=== PATIENT | female | born 1925 | race Caucasian/White ===

== ENCOUNTER 2016-09-17 09:27 | Emergency (ER) | payer MEDICARE, OTHER ==
[2016-09-17 09:43] VITALS: BP 156/79
--- NOTE | 2016-09-17 10:52 | EDM.PDOC ---
ED HPI GENERAL MEDICAL PROBLEM - General Chief Complaint: General Stated Complaint: RASH/OINTMENT MAKING PT SICK Time Seen by Provider: 09/17/16 09:45 Source of Information: Reports: Patient, Family History Limitations: Reports: No limitations - History of Present Illness INITIAL COMMENTS - FREE TEXT/NARRATIVE: 89-year-old female who was started on a topical triamcinolone for a rash on her hands is brought in today by her son because she just feels so weak. It's been progressively worse over the past several weeks. No dark stools, fevers, pain, shortness of breath or headache. She did not mention her weakness to her primary doctor 2 days ago when she complained of the rash. Onset: unknown/unsure Severity: mild Worsens with: Reports: Other (She is concerned that the triamcinolone is causing her symptoms) Associated Symptoms: Reports: malaise, weakness. 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 Endocrine/Metabolic History: Reports: Diabetes, type II - Past Surgical History GI Surgical History: Reports: Cholecystectomy Female Surgical History: Reports: Hysterectomy Musculoskeletal Surgical History: Reports: Knee replacement, Shoulder surgery Other Oncologic Surgeries/Procedures: L side Social & Family History - Tobacco Use Smoking Status *Q: Never Smoker Years of Tobacco use: 0 Second Hand Smoke Exposure: No - Alcohol Use Days Per Week of Alcohol Use: 0 - Recreational Drug Use Recreational Drug Use: No ED ROS GENERAL - Review of Systems Review Of Systems: See Below Constitutional: Reports: malaise, weakness. Denies: fever, chills HEENT: Reports: No symptoms Respiratory: Denies: Shortness of Breath, Cough Cardiovascular: Denies: Chest pain GI/Abdominal: Denies: Abdominal pain, Nausea, Vomiting : Reports: no symptoms Musculoskeletal: Reports: no symptoms Skin: Reports: rash (On hands and forearms) Neurological: Reports: Weakness. Denies: Confusion, Dizziness, Headache Psychiatric: Reports: No symptoms ED EXAM, GENERAL - Physical Exam Exam: See Below Exam Limited By: No limitations General Appearance: alert, no apparent distress Eye Exam: bilateral eye: EOMI Respiratory/Chest: no respiratory distress, lungs clear Cardiovascular: regular rate, rhythm GI/Abdominal: non tender Neurological: alert, oriented Psychiatric: normal affect, normal mood Skin Exam: Warm, Dry, Other (She has erythematous plaques on the dorsal aspects of both hands and extensor surfaces of the forearms) Course - Vital Signs Last Recorded V/S: Last Vital Signs Temp 96.5 F 09/17/16 09:51 Pulse 82 09/17/16 09:51 Resp 16 09/17/16 09:51 BP 156/79 H 09/17/16 09:51 Pulse Ox 93 L 09/17/16 09:51 - Orders/Labs/Meds Labs: Laboratory Tests 09/17/16 09/17/16 09/17/16 Range/Units 10:31 10:31 10:48 WBC 5.7 (4.5-11.0) K/uL RBC 4.67 (3.30-5.50) M/uL Hgb 15.2 H (12.0-15.0) g/dL Hct 44.1 (36.0-48.0) % MCV 94 (80-98) fL MCH 33 H (27-31) pg MCHC 35 (32-36) % Plt Count 210 (150-400) K/uL Neut % (Auto) 70 H (36-66) % Lymph % (Auto) 19 L (24-44) % [place] % (Auto) 10 H (2-6) % Eos % (Auto) 1 L (2-4) % Baso % (Auto) 1 (0-1) % Sodium 135 L (140-148) mmol/L Potassium 4.0 (3.6-5.2) mmol/L Chloride 98 L (100-108) mmol/L Carbon Dioxide 24 (21-32) mmol/L Anion Gap 17.0 H (5.0-14.0) mmol/L BUN 18 (7-18) mg/dL Creatinine 1.1 H (0.6-1.0) mg/dL Est Cr Clr Drug Dosing 26.16 mL/min Estimated GFR (MDRD) 47 L (>60) Glucose 260 H (74-106) mg/dL Calcium 8.5 (8.5-10.1) mg/dL Urine Color Yellow Urine Appearance Slightly cloudy Urine pH 5.0 (4.5-8.0) Ur Specific [place] 1.030 (1.008-1.030) Urine Protein Trace (NEGATIVE) mg/dL Urine Glucose (UA) 1000 H (NEGATIVE) mg/dL Urine Ketones 50 H (NEGATIVE) mg/dL Urine Occult Blood Negative (NEGATIVE) Urine Nitrite Negative (NEGATIVE) Urine Bilirubin Negative (NEGATIVE) Urine Urobilinogen Normal (NORMAL) mg/dL Ur Leukocyte Esterase Negative (NEGATIVE) Urine RBC 0-5 (0-5) Urine WBC 0-5 (0-5) Ur Epithelial Cells Many Amorphous Sediment Few Urine Bacteria Not seen Urine Mucus Few - Re-Assessments/Exams Free Text/Narrative Re-Assessment/Exam: 09/17/16 10:52 CBC BMP UA were obtained. 09/17/16 11:17 UA was negative other than glucose present. Serum glucose was 260, she had some mild renal insufficiency but otherwise labs were reassuring. I discussed with her her primary doctor has ever talk to her about her glucose levels , I reviewed her levels here in the emergency room over the past year they have always been around 200. She is not sure. I asked her to continue with the topical triamcinolone and recheck with Dr. Luna next week. Departure - Departure Time of Disposition: 12:10 Disposition: Home, Self-Care 01 Condition: good Clinical Impression: Chronic hyperglycemia, Weakness, Rash of hands Instructions: Hyperglycemia, [id number], Rash, [id number] Referrals: Rd Luna MD [Primary Care Provider] - Forms: ED Department Discharge Care Plan Goals: Continue with topical cream as directed to the weekend and consider rechecking with Dr. Luna next week to discuss your glucose levels and weakness as well as rechecking your hands. You can return anytime if worsening such as fever or shortness of breath.
== END 2016-09-17 12:09 | disposition home or self-care (01) ==
LOC: JP.ED 09:27
DX: R73.9 Hyperglycemia, unspecified (principal); R53.1 Weakness; R21 Rash and other nonspecific skin eruption; E11.9 Type 2 diabetes mellitus without complications; Z90.49 Acquired absence of other specified parts of digestive tract; Z90.710 Acquired absence of both cervix and uterus; Z96.659 Presence of unspecified artificial knee joint; Z98.890 Other specified postprocedural states
CPT/HCPCS: 36415; 80048; 81001; 85025; 99283; 99284

== ENCOUNTER 2016-09-20 14:56 | Inpatient (IN) | payer MEDICARE, OTHER ==
[2016-09-20] MEDS ORDERED: Sodium Chloride 0.9% 10 ML Syringe FLUSH PRN (15:33)
[2016-09-20] MEDS ORDERED: Nitroglycerin 0.4 MG Tab.SL SL PRN (15:33)
--- NOTE | 2016-09-20 15:38 | EDM.PDOC ---
ED HISTORY OF PRESENT ILLNESS - General Chief Complaint: Cardiovascular Problem Stated Complaint: CAME FROM CLINIC Time Seen by Provider: 09/20/16 15:27 Source: Reports: Patient, Family, RN notes reviewed History Limitations: Reports: No limitations - History of Present Illness INITIAL COMMENTS - FREE TEXT/NARRATIVE: 89-year-old female presents to the emergency department he complained of shortness of breath she was initially evaluated by her primary care provider and sent over from the clinic. She states she's been feeling poorly for the last 3 or 4 days she has had a 6 pound weight gain and increasingly short of breath she's had to sleep in a chair because she cannot lay flat she has a sensation in her chest of cannot breathe and pressure did have a bout of nausea in route to the clinic today no diaphoresis no history of congestive heart failure - Related Data Allergies/ADRs: Allergies Allergy/AdvReac Type Severity Reaction Status Date / Time No Known Allergies Allergy Verified 09/20/16 15:02 Home Meds: Home Meds metFORMIN [Glucophage] 500 mg PO TID 09/11/14 [History] Triamcinolone Acetonide [Triamcinolone Acetonide 0.1% Crm] 1 inch TOP TID [History] atorvaSTATin [Lipitor] 20 mg PO BEDTIME 09/20/16 [History] glyBURIDE [Micronase] 5 mg PO BID 09/20/16 [History] Past Medical History HEENT History: Reports: Impaired vision Cardiovascular History: Reports: High cholesterol, Hypertension Gastrointestinal History: Reports: GERD Genitourinary History: Reports: UTI, recurrent PIPE INST[employer]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: Musculoskeletal History: Reports: Osteoarthritis 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 Psychiatric History: Reports: Dementia, Depression Endocrine/Metabolic History: Reports: Diabetes, type II Dermatologic History: Reports: Other (see below) Other Dermatologic History: rash under arms,chest - Infectious Disease History Infectious Disease History: Reports: Chicken pox, Measles, Mumps, Shingles - Past Surgical History GI Surgical History: Reports: Cholecystectomy Female Surgical History: Reports: Hysterectomy, Mastectomy Musculoskeletal Surgical History: Reports: Knee replacement, Shoulder surgery Other Oncologic Surgeries/Procedures: L side Social & Family History - Tobacco Use Smoking Status *Q: Never Smoker Years of Tobacco use: 0 Second Hand Smoke Exposure: No - Caffeine Use Caffeine Use: Reports: Soda - Alcohol Use Days Per Week of Alcohol Use: 0 - Recreational Drug Use Recreational Drug Use: No ED ROS GENERAL - Review of Systems Review Of Systems: See Below Constitutional: Reports: no symptoms HEENT: Reports: No symptoms Respiratory: Reports: Shortness of Breath Cardiovascular: Reports: Chest pain, Edema GI/Abdominal: Reports: Nausea. Denies: Vomiting : Reports: no symptoms Musculoskeletal: Reports: no symptoms Skin: Reports: no symptoms Neurological: Reports: No Symptoms ED EXAM, GENERAL - Physical Exam Exam: See Below Free Text/Narrative:: General: female, not in any distress, alert HEENT: head is atraumatic normocephalic, eyes pupils equal round reactive to light, sclera clear no conjunctivitis appreciated. Ears tympanic membranes clear and [place] landmarks and light reflex are present bilaterally canals are clear. Nose no septal deviation, nares are clear, no blood present. Mouth mucosa is moist and pink no erythema or exudate noted in soft palate, tongue is midline uvula is midline , dentition is intact. Neck: Supple no thyromegaly no tracheal deviation. Nodes: Cervical nodes subclavicular nodes nontender no palpable lymphadenopathy noted. Lungs: crackles in the bases bilaterally CV: Regular rate and rhythm S1 and S2 appreciated 2/6 systolic ejection murmur best appreciated left sternal border Abdomen: Soft, nontender, no palpable masses or organomegaly appreciated, no distention no guarding bowel sounds are present, . Neuro: Cranial nerves II through XII grossly intact Skin: Warm and dry, intact Extremities: +1 pitting edema appreciated bilaterally Course - Vital Signs Last Recorded V/S: Last Vital Signs Temp 97.3 F 09/20/16 15:22 Pulse 99 09/20/16 16:20 Resp 16 09/20/16 16:20 BP 150/96 H 09/20/16 17:07 Pulse Ox 93 L 09/20/16 16:20 - Orders/Labs/Meds Orders: Active Orders 24 hr Category Date Time Status Cardiac Monitoring [RC] .As Directed Care 09/20/16 15:33 Active EKG Documentation Completion [RC] ASDIRECTED Care 09/20/16 15:34 Active Peripheral IV Care [RC] . DIRECTED Care 09/20/16 15:34 Active Chest 1V Frontal [CR] Stat Exams 09/20/16 15:34 Taken UA W/MICROSCOPIC [URIN] Stat Lab 09/20/16 15:33 Uncollected Nitroglycerin [Nitrostat] Med 09/20/16 15:33 Active 0.4 mg SL Q5M PRN Sodium Chloride 0.9% [Saline Flush] Med 09/20/16 15:33 Active 10 ml FLUSH ASDIRECTED PRN Peripheral IV Insertion Adult [OM.PC] Stat Oth 09/20/16 15:33 Ordered Saline Lock Insert [OM.PC] Stat Oth 09/20/16 15:33 Ordered EKG 12 Lead [EK] Stat Ther 09/20/16 15:34 Ordered Medication Orders Nitroglycerin (Nitrostat) 0.4 mg SL Q5M PRN PRN Reason: Chest Pain Stop: 09/21/16 15:33 Last Admin: 09/20/16 15:51 Dose: 0.4 mg Sodium Chloride (Saline Flush) 10 ml FLUSH ASDIRECTED PRN PRN Reason: Keep Vein Open Last Admin: 09/20/16 15:52 Dose: 10 ml Labs: Laboratory Tests 09/20/16 09/20/16 Range/Units 15:55 15:55 WBC 12.4 H (4.5-11.0) K/uL RBC 4.58 (3.30-5.50) M/uL Hgb 14.8 (12.0-15.0) g/dL Hct 43.5 (36.0-48.0) % MCV 95 (80-98) fL MCH 32 H (27-31) pg MCHC 34 (32-36) % Plt Count 220 (150-400) K/uL Neut % (Auto) 79 H (36-66) % Lymph % (Auto) 9 L (24-44) % [place] % (Auto) 12 H (2-6) % Eos % (Auto) 0 L (2-4) % Baso % (Auto) 0 (0-1) % Sodium 135 L (140-148) mmol/L Potassium 4.4 (3.6-5.2) mmol/L Chloride 98 L (100-108) mmol/L Carbon Dioxide 20 L (21-32) mmol/L Anion Gap 21.4 H (5.0-14.0) mmol/L BUN 25 H (7-18) mg/dL Creatinine 1.2 H (0.6-1.0) mg/dL Est Cr Clr Drug Dosing 25.14 mL/min Estimated GFR (MDRD) 42 L (>60) Glucose 317 H (74-106) mg/dL Calcium 9.1 (8.5-10.1) mg/dL Total Bilirubin 1.1 H D (0.2-1.0) mg/dL AST 15 (15-37) U/L ALT 25 (12-78) U/L Alkaline Phosphatase 58 (46-116) U/L Troponin I 0.069 H* (0.000-0.056) ng/mL [id number] Pept 8022 H (5-450) pg/mL Total Protein 7.2 (6.4-8.2) g/dL Albumin 3.6 (3.4-5.0) g/dL Globulin 3.6 H (2.3-3.5) g/dL Albumin/Globulin Ratio 1.0 L (1.2-2.2) Meds: Medications Generic Name Dose Route Start Last Admin Trade Name Freq PRN Reason Stop Dose Admin Nitroglycerin 0.4 mg 09/20/16 15:33 09/20/16 15:51 Nitrostat SL 09/21/16 15:33 0.4 mg Q5M PRN Administration Chest Pain Sodium Chloride 10 ml 09/20/16 15:33 09/20/16 15:52 Saline Flush FLUSH 10 ml ASDIRECTED PRN Administration Keep Vein Open Discontinued Medications Generic Name Dose Route Start Last Admin Trade Name Freq PRN Reason Stop Dose Admin Furosemide 60 mg 09/20/16 16:41 09/20/16 17:07 Lasix IVPUSH 09/20/16 16:42 60 mg ONETIME ONE Administration Departure - Departure Time of Disposition: 17:17 Disposition: Admitted As Inpatient 68 Condition: good Clinical Impression: Congestive heart failure Qualifiers: Congestive heart failure type: unspecified congestive heart failure type Congestive heart failure chronicity: acute Qualified Code(s): I50.9 - Heart failure, unspecified Forms: ED Department Discharge - My Orders Last 24 Hours: My Active Orders 09/20/16 15:33 Cardiac Monitoring [RC] .As Directed UA W/MICROSCOPIC [URIN] Stat Nitroglycerin [Nitrostat] 0.4 mg SL Q5M PRN Sodium Chloride 0.9% [Saline Flush] 10 ml FLUSH ASDIRECTED PRN Peripheral IV Insertion Adult [OM.PC] Stat Saline Lock Insert [OM.PC] Stat 09/20/16 15:34 EKG Documentation Completion [RC] ASDIRECTED Peripheral IV Care [RC] . DIRECTED Chest 1V Frontal [CR] Stat EKG 12 Lead [EK] Stat - Assessment/Plan Last 24 Hours: My Active Orders 09/20/16 15:33 Cardiac Monitoring [RC] .As Directed UA W/MICROSCOPIC [URIN] Stat Nitroglycerin [Nitrostat] 0.4 mg SL Q5M PRN Sodium Chloride 0.9% [Saline Flush] 10 ml FLUSH ASDIRECTED PRN Peripheral IV Insertion Adult [OM.PC] Stat Saline Lock Insert [OM.PC] Stat 09/20/16 15:34 EKG Documentation Completion [RC] ASDIRECTED Peripheral IV Care [RC] . DIRECTED Chest 1V Frontal [CR] Stat EKG 12 Lead [EK] Stat Plan: Assessment Acuity = acute Site and laterality = congestive heart failure complicated patient with known history of diabetes mellitus type 2 and dementia Etiology = unclear etiology Manifestations = dyspnea, chest pressure Location of injury = home Lab values = WBC elevated 12.4 consistent leukocytosis, sodium low at 135 consistent hyponatremia creatinine elevated at 1.2 consistent with acute renal failure stage GIV,glucose elevated at 317 consistent hyperglycemia total bilirubin elevated 1.1 consistent hyperbilirubinemia troponin elevated 0.069 probably related to myocardial stretch BNP elevated at 8022 consistent with fluid overload type pattern with congestive heart failure, EKG demonstrates sinus rhythm appreciate any ST depressions or elevations, chest x-ray also shows cardiomegaly with blunting of the costophrenic angles and fluid overload type pattern Plan discussed the case with hospitalist on-call he agreed to evaluate the patient in the emergency department for admission This note was dictated using [employer] voice recognition software please call with any questions.
[2016-09-20] MEDS ORDERED: Furosemide 40 MG/4 ML VIAL IVPUSH ONE (16:41)
--- NOTE | 2016-09-20 17:38 | PCM.HP ---
H&P History of Present Illness - General Date of Service: 09/20/16 Admit Problem/Dx: Admission Diagnosis/Problem Admission Diagnosis/Problem CHF, Congestive heart failure Source of Information: Patient, Family, Provider History Limitations: Reports: Altered mental status - History of Present Illness Initial Comments - Free Text/Narative: Isma presents to the emergency room today with several days of progressive shortness of breath and weakness. History is a little bit Limited because of her dementia but in general she does a pretty good job answering questions but does get some help from her son and a daughter in law. She reports progressive orthopnea over the last few days and dyspnea with any exertion. She has some tightness in her chest that seems to be fairly constant and she doesn't think gets worse with activity. This is a mild a pressure-like tightness located in the middle of her chest. She hasn't tried anything at home to make it better. Nothing real obvious makes it worse. Blood sugars have been running high for the past few days but she has not checked them regularly. No reports of fevers or shaking chills. No complaints of abdominal pain but she has had some nausea. She has noticed some lower extremity edema. No obvious sick contacts or recent travel. Workup in the emergency room has revealed evidence for congestive heart failure. She also has suboptimally-controlled diabetes. She will be admitted for management and additional workup with new onset congestive heart failure. Anterior Chest Pain Score (Numeric/FACES): 8 - Related Data Allergies/Adverse Reactions: Allergies Allergy/AdvReac Type Severity Reaction Status Date / Time No Known Allergies Allergy Verified 09/20/16 15:02 Home Medications: Home Meds metFORMIN [Glucophage] 500 mg PO TID 09/11/14 [History] Triamcinolone Acetonide [Triamcinolone Acetonide 0.1% Crm] 1 inch TOP TID [History] atorvaSTATin [Lipitor] 20 mg PO BEDTIME 09/20/16 [History] glyBURIDE [Micronase] 5 mg PO BID 09/20/16 [History] Past Medical History HEENT History: Reports: Impaired vision Cardiovascular History: Reports: High cholesterol, Hypertension Gastrointestinal History: Reports: GERD Genitourinary History: Reports: UTI, recurrent 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: Musculoskeletal History: Reports: Osteoarthritis 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 Psychiatric History: Reports: Dementia, Depression Endocrine/Metabolic History: Reports: Diabetes, type II Dermatologic History: Reports: Other (see below) Other Dermatologic History: rash under arms,chest - Infectious Disease History Infectious Disease History: Reports: Chicken pox, Measles, Mumps, Shingles - Past Surgical History GI Surgical History: Reports: Cholecystectomy Female Surgical History: Reports: Hysterectomy, Mastectomy Musculoskeletal Surgical History: Reports: Knee replacement, Shoulder surgery Other Oncologic Surgeries/Procedures: L side Social & Family History - Family History Cardiac: Reports: CAD Respiratory: Reports: COPD Oncologic: Reports: Pancreatic - Tobacco Use Smoking Status *Q: Never Smoker Years of Tobacco use: 0 Second Hand Smoke Exposure: No - Caffeine Use Caffeine Use: Reports: Soda - Alcohol Use Days Per Week of Alcohol Use: 0 - Recreational Drug Use Recreational Drug Use: No H&P Review of Systems - Review of Systems: Review Of Systems: See Below Free Text/Narrative: A complete 12 point review of systems was obtained. Pertinent positives and negatives are noted in the history of present illness. All other systems were reviewed and were negative except as noted. Exam - Exam Exam: See Below - Vital Signs Vital Signs: Last Vital Signs Temp 36.3 C 09/20/16 15:22 Pulse 103 H 09/20/16 17:25 Resp 14 09/20/16 17:25 BP 133/79 09/20/16 17:25 Pulse Ox 93 L 09/20/16 17:25 Weight: 77.2 kg - Exam Quality Assessment: No: supplemental oxygen General: alert, cooperative. No: oriented, mild distress HEENT: Conjunctiva clear, Mucosa moist & pink, Posterior pharynx clear. No: Scleral icterus Neck: supple, trachea midline. No: lymphadenopathy, JVD, thyromegaly Lungs: Normal respiratory effort, Decreased breath sounds (Both bases), Crackles (Both bases). No: Wheezing Cardiovascular: regular rate, regular rhythm, systolic murmur (Heart systolic ejection murmur both the right upper sternal border and left lower sternal border) Abdomen: normal bowel sounds, soft, tenderness (Mild to moderate suprapubic tenderness). No: distention, guarding Back Exam: normal inspection, full range of motion Extremities: normal pulses, edema (Mild pitting ankle edema of the lower third of both leg). No: cyanosis Peripheral Pulses: 2+: dorsalis pedis (L), dorsalis pedis (R) Skin: warm, dry Neuro Extensive - Mental Status: alert, nl response to commands. No: oriented x3 Neuro Extensive - Motor, Sensory, Reflexes: CN II-XII intact. No: dysarthria, abnormal motor, tremor Psychiatric: alert, normal affect - Patient Data Lab Results last 24 hrs: Laboratory Results - last 24 hr 09/20/16 09/20/16 Range/Units 15:55 15:55 WBC 12.4 H (4.5-11.0) K/uL RBC 4.58 (3.30-5.50) M/uL Hgb 14.8 (12.0-15.0) g/dL Hct 43.5 (36.0-48.0) % MCV 95 (80-98) fL MCH 32 H (27-31) pg MCHC 34 (32-36) % Plt Count 220 (150-400) K/uL Neut % (Auto) 79 H (36-66) % Lymph % (Auto) 9 L (24-44) % [place] % (Auto) 12 H (2-6) % Eos % (Auto) 0 L (2-4) % Baso % (Auto) 0 (0-1) % Sodium 135 L (140-148) mmol/L Potassium 4.4 (3.6-5.2) mmol/L Chloride 98 L (100-108) mmol/L Carbon Dioxide 20 L (21-32) mmol/L Anion Gap 21.4 H (5.0-14.0) mmol/L BUN 25 H (7-18) mg/dL Creatinine 1.2 H (0.6-1.0) mg/dL Est Cr Clr Drug Dosing 25.14 mL/min Estimated GFR (MDRD) 42 L (>60) Glucose 317 H (74-106) mg/dL Calcium 9.1 (8.5-10.1) mg/dL Total Bilirubin 1.1 H D (0.2-1.0) mg/dL AST 15 (15-37) U/L ALT 25 (12-78) U/L Alkaline Phosphatase 58 (46-116) U/L Troponin I 0.069 H* (0.000-0.056) ng/mL Pkp-Q-Bqjrqbrblve Pept 8022 H (5-450) pg/mL Total Protein 7.2 (6.4-8.2) g/dL Albumin 3.6 (3.4-5.0) g/dL Globulin 3.6 H (2.3-3.5) g/dL Albumin/Globulin Ratio 1.0 L (1.2-2.2) Result Diagrams: 09/20/16 15:55 09/20/16 15:55 Imaging Impressions last 24 hrs: Chest x-ray - images personally reviewed - there is evidence for bilateral pleural effusions, right greater than left and pulmonary vascular congestion is noted. No evidence for infiltrate. No obvious masses. EKG INTERPRETATION EKG Date: 09/20/16 Rhythm: NSR Rate (beats/min): 98 Dwarf: normal P-wave: present QRS: normal ST-T: normal QT: normal *Q Meaningful Use (ADM) - VTE *Q VTE Criteria *Q: - Stroke *Q Stroke Criteria *Q: - AMI *Q AMI Criteria *Q: - Problem List (1) Congestive heart failure SNOMED Code(s): 76690308 ICD Code: I50.9 - HEART FAILURE, UNSPECIFIED Status: Acute Current Visit : Yes Qualifiers: Congestive heart failure type: unspecified congestive heart failure type Congestive heart failure chronicity: acute Qualified Code(s): I50.9 - Heart failure, unspecified (2) Diabetes mellitus with hyperglycemia SNOMED Code(s): 96899584, 51115620, 118403708 ICD Code: E11.65 - TYPE 2 DIABETES MELLITUS WITH HYPERGLYCEMIA Status: Acute Current Visit: Yes Qualifiers: Diabetes mellitus type: type 2 Diabetes mellitus [facility] insulin use: without terminal superintendent use Qualified Code(s): E11.65 - Type 2 diabetes mellitus with hyperglycemia (3) Dementia SNOMED Code(s): 03663907 ICD Code: F03.90 - UNSPECIFIED DEMENTIA WITHOUT BEHAVIORAL DISTURBANCE Status: Acute Current Visit: Yes Qualifiers: Dementia type: Alzheimer's disease Alzheimer's disease onset: late-onset Dementia behavioral disturbance: without behavioral disturbance Qualified Code (s): G30.1 - Alzheimer's disease with late onset; F02.80 - Dementia in other diseases classified elsewhere without behavioral disturbance (4) Stage III chronic kidney disease SNOMED Code(s): 202785753 ICD Code: N18.3 - CHRONIC KIDNEY DISEASE, STAGE 3 (MODERATE) Status: Acute Current Visit: Yes Problem List Initiated/Reviewed/Updated: Yes Orders Last 24hrs: Active Orders 24 hr Category Date Time Status Patient Status Manage Transfer [TRANSFER] Routine ADT 09/20/16 17:17 Ordered Cardiac Monitoring [RC] .As Directed Care 09/20/16 15:33 Active EKG Documentation Completion [RC] ASDIRECTED Care 09/20/16 15:34 Active Insert Manzano Catheter [Insert Urinary Catheter] [OM.PC] Care 09/20/16 17:30 Ordered Q24H Peripheral IV Care [RC] . DIRECTED Care 09/20/16 15:34 Active Urinary Catheter Assessment [RC] ASDIRECTED Care 09/20/16 17:16 Active Chest 1V Frontal [CR] Stat Exams 09/20/16 15:34 Taken UA W/MICROSCOPIC [URIN] Stat Lab 09/20/16 17:24 Ordered Nitroglycerin [Nitrostat] Med 09/20/16 15:33 Active 0.4 mg SL Q5M PRN Sodium Chloride 0.9% [Saline Flush] Med 09/20/16 15:33 Active 10 ml FLUSH ASDIRECTED PRN Peripheral IV Insertion Adult [OM.PC] Stat Oth 09/20/16 15:33 Ordered Saline Lock Insert [OM.PC] Stat Oth 09/20/16 15:33 Ordered Resuscitation Status Routine Resus Stat 09/20/16 17:19 Ordered EKG 12 Lead [EK] Stat Ther 09/20/16 15:34 Ordered Medication Orders Nitroglycerin (Nitrostat) 0.4 mg SL Q5M PRN PRN Reason: Chest Pain Stop: 09/21/16 15:33 Last Admin: 09/20/16 15:51 Dose: 0.4 mg Sodium Chloride (Saline Flush) 10 ml FLUSH ASDIRECTED PRN PRN Reason: Keep Vein Open Last Admin: 09/20/16 15:52 Dose: 10 ml Assessment/Plan Comment:: Assessment and plan - New-onset congestive heart failure - valvular disease is suspected with 2 different heart murmurs but left ventricular function is unknown at this time. With increased confusion and suprapubic pain she may have a bladder infection as a potential cause a urine sample is pending. No history of coronary disease or congestive heart failure. Most of her extra fluid is backing up into the pulmonary system raising concern for valvular issues or decreased left ventricular function. She does have a mildly elevated troponin which I believe is caused by stress from the heart failure rather than from an acute coronary syndrome. She has received furosemide in the emergency room. -Place a Manzano catheter for strict intake and output monitoring -Reassess volume status in the morning -Consider bedside ultrasound to help with volume status tomorrow -Echo on -Consider beta daly and/or MARJAN inhibitor once she is more hemodynamically stable following diuresis -TSH in the morning -Urinalysis to rule out occult infection Diabetes mellitus type 2 with hyperglycemia - Sugars have been running high when she does check them, has not been taking medications and thinks that she was out of her pills a while back. Possibly some contribution from underlying infection. 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 -Consider room close to the nurse's station and watch for Maintenance issues - - DVT prophylaxis - mechanical - GI prophylaxis - not indicated - Nutrition - low sodium - Manzano catheter - placed in the emergency room for strict intake and output monitoring CODE STATUS - DO NOT RESUSCITATE/DO NOT INTUBATE Admission justification - This patient will be admitted for inpatient services and is medically appropriate meeting medical necessity for inpatient admission as outlined in my documentation. I reasonably expect the patient will require inpatient services that span a period time over 2 midnights. I reasonably expect this patient to be discharged or transferred within 96 hours [facility]. Disposition - anticipate discharge to home after the hospital stay Primary care physician - Dr. Jeremy Flores M.D.
[2016-09-20] MEDS ORDERED: Morphine 2 MG/ML Syringe IVPUSH PRN (18:40)
[2016-09-20] MEDS ORDERED: Polyethylene Glycol 3350 Powder 17 GM Packet PO PRN (18:40)
[2016-09-20] MEDS: Triamcinolone Acetonide 0.1% Crm 15 GM Tube TOP SCH (21:04)
[2016-09-20] MEDS: atorvaSTATin 20 MG Tab PO SCH (21:04)
[2016-09-20] MEDS ORDERED: Insulin Aspart 100 Units/ML 3 ML Pen SUBCUT ONE (21:15)
[2016-09-20] MEDS: Insulin Aspart 100 Units/ML 3 ML Pen SUBCUT SCH (21:21)
[2016-09-20] MEDS: Acetaminophen 325 MG Tab PO PRN (22:00)
[2016-09-21] MEDS: Insulin Aspart 100 Units/ML 3 ML Pen SUBCUT SCH ×4 (08:09→21:03)
[2016-09-21] MEDS ORDERED: GLYBURIDE 5 MG PO SCH (08:30)
[2016-09-21] MEDS ORDERED: Potassium Chloride 20 MEQ Tab.ER PO ONE (09:00)
--- NOTE | 2016-09-21 09:06 | PCM.PN ---
- General Info Date of Service: 09/21/16 Functional Status: Reports: pain controlled, tolerating diet - Review of Systems General: Reports: Weakness. Denies: Fever Pulmonary: Reports: shortness of breath Cardiovascular: Reports: Edema Gastrointestinal: Reports: Abdominal pain Systems Review Comment:: no acute events overnight. Shortness of breath and chest tightness feel a little bit better today. Still had some orthopnea last night that it seemed better than previous nights. Lower extremity edema has improved. She is able to transfer with standby assist from the bed to the chair. Kidney function stable. Excellent urine output yesterday with diuresis. - Patient Data Vitals - most recent: Last Vital Signs Temp 35.6 C 09/21/16 07:40 Pulse 83 09/21/16 07:40 Resp 20 09/21/16 07:40 BP 122/78 09/21/16 07:40 Pulse Ox 95 09/21/16 07:40 Weight - most recent: 77.111 kg I&O - last 24 hours: Intake & Output 09/20/16 09/21/16 09/21/16 22:59 06:59 14:59 Output Total 800 1350 Balance -800 -1350 Lab Results last 24 hrs: Laboratory Results - last 24 hr 09/20/16 09/21/16 09/21/16 Range/Units 17:24 04:50 04:50 WBC 9.1 (4.5-11.0) K/uL RBC 4.60 (3.30-5.50) M/uL Hgb 14.6 (12.0-15.0) g/dL Hct 43.0 (36.0-48.0) % MCV 94 (80-98) fL MCH 32 H (27-31) pg MCHC 34 (32-36) % Plt Count 210 (150-400) K/uL Sodium 138 L (140-148) mmol/L Potassium 3.5 L (3.6-5.2) mmol/L Chloride 99 L (100-108) mmol/L Carbon Dioxide 25 (21-32) mmol/L Anion Gap 17.5 H (5.0-14.0) mmol/L BUN 26 H (7-18) mg/dL Creatinine 1.2 H (0.6-1.0) mg/dL Est Cr Clr Drug Dosing 23.98 mL/min Estimated GFR (MDRD) 42 L (>60) Glucose 205 H (74-106) mg/dL Calcium 9.0 (8.5-10.1) mg/dL Magnesium 1.4 L (1.8-2.4) mg/dL TSH, Ultra Sensitive 1.037 (0.358-3.740) uIU/mL Urine Color Yellow Urine Appearance Slightly cloudy Urine pH 5.0 (4.5-8.0) Ur Specific [place] 1.015 (1.008-1.030) Urine Protein Negative (NEGATIVE) mg/dL Urine Glucose (UA) 1000 H (NEGATIVE) mg/dL Urine Ketones 15 H (NEGATIVE) mg/dL Urine Occult Blood Negative (NEGATIVE) Urine Nitrite Negative (NEGATIVE) Urine Bilirubin Negative (NEGATIVE) Urine Urobilinogen Normal (NORMAL) mg/dL Ur Leukocyte Esterase Negative (NEGATIVE) Urine RBC 0-5 (0-5) Urine WBC 0-5 (0-5) Ur Epithelial Cells Not seen Amorphous Sediment Rare Urine Bacteria Not seen Urine Mucus Not seen Med Orders - Current: Current Medications Acetaminophen (Tylenol) 650 mg PO Q4H PRN PRN Reason: Pain (Mild 1-3)/fever Last Admin: 09/20/16 22:00 Dose: 650 mg Atorvastatin Calcium (Lipitor) 20 mg PO BEDTIME [facility] Last Admin: 09/20/16 21:04 Dose: 20 mg Glyburide (Micronase) 5 mg PO BIDAC [facility] Magnesium Sulfate 2 gm/ Premix 50 mls @ 25 mls/hr IV Q6H [facility] Stop: 09/21/16 22:59 Insulin Aspart (Novolog) 0 unit SUBCUT QIDACANDBED [facility] PRN Reason: Protocol Last Admin: 09/21/16 08:09 Dose: 4 units Metformin HCl (Glucophage) 500 mg PO TIDMEALS [facility] Morphine Sulfate (Morphine) 2 mg IVPUSH Q2H PRN PRN Reason: Chest Pain Ondansetron HCl (Zofran Odt) 4 mg PO Q6H PRN PRN Reason: Nausea able to take PO Polyethylene Glycol (Miralax) 17 gm PO DAILY PRN PRN Reason: Constipation Senna/Docusate Sodium (Senna Plus) 1 tab PO BID PRN PRN Reason: Constipation Sodium Chloride (Saline Flush) 10 ml FLUSH ASDIRECTED PRN PRN Reason: Keep Vein Open Last Admin: 09/20/16 15:52 Dose: 10 ml Triamcinolone Acetonide (Triamcinolone Acetonide 0.1% Crm) 0 gm TOP BID [facility] Last Admin: 09/20/16 21:04 Dose: 1 applic Discontinued Medications Furosemide (Lasix) 60 mg IVPUSH ONETIME ONE Stop: 09/20/16 16:42 Last Admin: 09/20/16 17:07 Dose: 60 mg Insulin Aspart (Novolog) 10 unit SUBCUT NOW ONE Stop: 09/20/16 21:16 Last Admin: 09/20/16 21:22 Dose: 10 units Nitroglycerin (Nitrostat) 0.4 mg SL Q5M PRN PRN Reason: Chest Pain Stop: 09/21/16 15:33 Last Admin: 09/20/16 15:51 Dose: 0.4 mg Potassium Chloride (Klor-Con M20) 40 meq PO ONETIME ONE Stop: 09/21/16 09:01 - Exam Quality Assessment: No: supplemental oxygen General: alert, oriented, cooperative, no acute distress Neck: supple Lungs: Normal respiratory effort, Crackles (rare at bases). No: Wheezing Cardiovascular: Regular Rate, Regular Rhythm, Murmurs Abdomen: bowel sounds present, soft, no distension, tenderness (mild LLQ) Extremities: edema (mild pitting lower ext edema bilaterally ) Skin: warm, dry Psy/Mental Status: alert, normal affect - Problem List & Annotations (1) Congestive heart failure SNOMED Code(s): 26704886 Code(s): I50.9 - HEART FAILURE, UNSPECIFIED Status: Acute Current Visit: Yes Qualifiers: Congestive heart failure type: unspecified congestive heart failure type Congestive heart failure chronicity: acute Qualified Code(s): I50.9 - Heart failure, unspecified (2) Diabetes mellitus with hyperglycemia SNOMED Code(s): 79786204, 47242469, 205153757 Code(s): E11.65 - TYPE 2 DIABETES MELLITUS WITH HYPERGLYCEMIA Status: Acute Current Visit: Yes Qualifiers: Diabetes mellitus type: type 2 Diabetes mellitus termination clerk insulin use: without termination clerk use Qualified Code(s): E11.65 - Type 2 diabetes mellitus with hyperglycemia (3) Dementia SNOMED Code(s): 52210645 Code(s): F03.90 - UNSPECIFIED DEMENTIA WITHOUT BEHAVIORAL DISTURBANCE Status: Chronic Current Visit: Yes Qualifiers: Dementia type: Alzheimer's disease Alzheimer's disease onset: late-onset Dementia behavioral disturbance: without behavioral disturbance Qualified Code (s): G30.1 - Alzheimer's disease with late onset; F02.80 - Dementia in other diseases classified elsewhere without behavioral disturbance (4) Stage III chronic kidney disease SNOMED Code(s): 651091759 Code(s): N18.3 - CHRONIC KIDNEY DISEASE, STAGE 3 (MODERATE) Status: Chronic Current Visit: Yes - Problem List Review Problem List Initiated/Reviewed/Updated: Yes - My Orders Last 24 Hours: My Active Orders 09/20/16 17:19 Resuscitation Status Routine 09/20/16 18:40 Patient Status [ADT] Routine Diabetes Education [RC] Click to Edit Intake and Output [RC] QSHIFT Notify Provider Vital Signs [RC] ASDIRECTED Notify Provider [RC] PRN Oxygen Therapy [RC] PRN Up With Assistance [RC] ASDIRECTED VTE/DVT Education [RC] Per Unit Routine Vital Signs [RC] Q4H PT Evaluation and Treatment [CONS] Routine Acetaminophen [Tylenol] 650 mg PO Q4H PRN Docusate Sodium/Sennosides [Senna Plus] 1 tab PO BID PRN Morphine 2 mg IVPUSH Q2H PRN Ondansetron [Zofran ODT] 4 mg PO Q6H PRN Polyethylene Glycol 3350 [MiraLAX] 17 gm PO DAILY PRN Antiembolic Hose [OM.PC] Per Unit Routine 09/20/16 Dinner 2 Gram Sodium Diet [DIET] 09/21/16 08:45 glyBURIDE [Micronase] 5 mg PO BIDAC 09/21/16 09:00 Magnesium Sulfate/Water [Magnesium Sulfate 2 GM in Water 50 ML] 2 gm Premix Bag 1 bag IV Q6H metFORMIN [Glucophage] 500 mg PO TIDMEALS 09/21/16 09:04 Furosemide [Lasix] 40 mg IVPUSH NOW ONE 09/21/16 11:00 Insulin Aspart [NovoLOG] See Protocol SUBCUT QIDACANDBED 09/21/16 11:30 GLUCOSE POC LAB TO COLLECT [POC] QIDACANDBED 09/21/16 16:30 GLUCOSE POC LAB TO COLLECT [POC] QIDACANDBED 09/21/16 17:00 POTASSIUM,K [CHEM] Timed 09/21/16 21:00 GLUCOSE POC LAB TO COLLECT [POC] QIDACANDBED 09/22/16 05:00 BASIC METABOLIC PANEL,BMP [CHEM] Timed GLYCOSYLATED HEMOGLOBIN,HGBA1C [CHEM] Timed 09/22/16 07:30 GLUCOSE POC LAB TO COLLECT [POC] QIDACANDBED 09/22/16 11:30 GLUCOSE POC LAB TO COLLECT [POC] QIDACANDBED 09/22/16 16:30 GLUCOSE POC LAB TO COLLECT [POC] QIDACANDBED 09/22/16 21:00 GLUCOSE POC LAB TO COLLECT [POC] QIDACANDBED 09/23/16 07:00 Echo Comp wo Cont [US] Routine 09/23/16 07:30 GLUCOSE POC LAB TO COLLECT [POC] QIDACANDBED 09/23/16 11:30 GLUCOSE POC LAB TO COLLECT [POC] QIDACANDBED 09/23/16 16:30 GLUCOSE POC LAB TO COLLECT [POC] QIDACANDBED 09/23/16 21:00 GLUCOSE POC LAB TO COLLECT [POC] QIDACANDBED 09/24/16 07:30 GLUCOSE POC LAB TO COLLECT [POC] QIDACANDBED 09/24/16 11:30 GLUCOSE POC LAB TO COLLECT [POC] QIDACANDBED 09/24/16 16:30 GLUCOSE POC LAB TO COLLECT [POC] QIDACANDBED 09/24/16 21:00 GLUCOSE POC LAB TO COLLECT [POC] QIDACANDBED 09/25/16 07:30 GLUCOSE POC LAB TO COLLECT [POC] QIDACANDBED 09/25/16 11:30 GLUCOSE POC LAB TO COLLECT [POC] QIDACANDBED 09/25/16 16:30 GLUCOSE POC LAB TO COLLECT [POC] QIDACANDBED 09/25/16 21:00 GLUCOSE POC LAB TO COLLECT [POC] QIDACANDBED 09/26/16 07:30 GLUCOSE POC LAB TO COLLECT [POC] QIDACANDBED - Plan Plan:: Assessment and plan - New-onset congestive heart failure - bedside ultrasound today showed thickening of the myocardium but no major valve issues and a normal ejection fraction. I suspect this is more of a diastolic congestive heart failure-type picture with long-standing diabetes. no evidence for infection. TSH normal. -remove Manzano this afternoon -Reassess volume status again in the morning -Echo on -start low-dose beta daly -Consider low-dose MARJAN inhibitor tomorrow if blood pressure tolerates beta daly Diabetes mellitus type 2 with hyperglycemia - Sugars have been running high, have improved some with supplemental insulin. Planning to restart home medications this morning. 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 -room close to the nurse's station and watch for Stage III CKD - creatinine level is stable. Maintenance issues - - DVT prophylaxis - mechanical - GI prophylaxis - not indicated - Nutrition - low sodium - Manzano catheter - placed in the emergency room for strict intake and output monitoring, plan to remove this afternoon Disposition - anticipate discharge to home after the hospital stay Dariusz Flores M.D.
--- NOTE | 2016-09-21 09:37 | CR ---
Chest 1V Frontal HISTORY: Chest pain. COMPARISON: 09/13/2014 FINDINGS: Mild congestive change. Small effusions. Borderline cardiomegaly. No dense infiltrate. Liliana gical clips left axilla. Impression: Mild CHF with small bilateral pleural effusions.
[2016-09-21] MEDS ORDERED: Furosemide 40 MG/4 ML VIAL IVPUSH ONE (09:45)
[2016-09-21] MEDS: metFORMIN 500 MG Tab PO SCH ×3 (09:48→17:40)
[2016-09-21] MEDS: Magnesium Sulfate/Water 2 GM in Premix Bag 1 BAG IV SCH ×3 (10:04→21:02)
[2016-09-21] MEDS: Triamcinolone Acetonide 0.1% Crm 15 GM Tube TOP SCH ×2 (10:08→21:07)
[2016-09-21] MEDS: Metoprolol Tartrate 25 MG Tab PO SCH ×2 (11:10→21:02)
[2016-09-21] MEDS: Ondansetron 4 MG Tab.DIS PO PRN (12:07)
[2016-09-21] MEDS: atorvaSTATin 20 MG Tab PO SCH (21:01)
[2016-09-22] MEDS: metFORMIN 500 MG Tab PO SCH (08:17)
[2016-09-22] MEDS: Metoprolol Tartrate 25 MG Tab PO SCH ×2 (08:18→20:50)
[2016-09-22] MEDS: Insulin Aspart 100 Units/ML 3 ML Pen SUBCUT SCH ×4 (08:21→20:58)
[2016-09-22] MEDS: Triamcinolone Acetonide 0.1% Crm 15 GM Tube TOP SCH ×2 (08:23→20:49)
[2016-09-22] MEDS ORDERED: Furosemide 40 MG/4 ML VIAL IVPUSH SCH (09:00)
[2016-09-22] MEDS: Ondansetron 4 MG Tab.DIS PO PRN (09:48)
[2016-09-22] MEDS ORDERED: Magnesium Hydroxide 400 MG/5 ML Susp 30 ML Cup PO PRN (11:18)
--- NOTE | 2016-09-22 11:22 | PCM.PN ---
- General Info Date of Service: 09/22/16 Functional Status: Reports: pain controlled, tolerating diet - Review of Systems General: Denies: Fever Gastrointestinal: Reports: Abdominal pain Psychiatric: Reports: confusion Systems Review Comment:: No acute events overnight. Sugars are a little better today but still 200 or higher on several occasions. Some confusion yesterday afternoon but in general her behavior has been good. Strength is improving but she is still very weak. No fevers. No chest tightness and her shortness of breath is much better today. Her kidney function did decline slightly with diuresis yesterday. Appetite has been good. - Patient Data Vitals - most recent: Last Vital Signs Temp 2.1 C L 09/22/16 07:41 Pulse 96 09/22/16 08:18 Resp 16 09/22/16 07:41 BP 116/82 09/22/16 08:18 Pulse Ox 93 L 09/22/16 07:41 Weight - most recent: 71.214 kg I&O - last 24 hours: Intake & Output 09/21/16 09/22/16 09/22/16 22:59 06:59 14:59 Intake Total 990 240 Output Total 150 Balance 840 240 Lab Results last 24 hrs: Laboratory Results - last 24 hr 09/21/16 09/22/16 09/22/16 Range/Units 15:00 05:00 05:00 Sodium 137 L (140-148) mmol/L Potassium 4.2 4.0 (3.6-5.2) mmol/L Chloride 99 L (100-108) mmol/L Carbon Dioxide 27 (21-32) mmol/L Anion Gap 15.0 H (5.0-14.0) mmol/L BUN 35 H (7-18) mg/dL Creatinine 1.5 H (0.6-1.0) mg/dL Est Cr Clr Drug Dosing 19.19 mL/min Estimated GFR (MDRD) 33 L (>60) Glucose 200 H (74-106) mg/dL Hemoglobin A1c 10.3 H (4.5-6.2) % Calcium 8.6 (8.5-10.1) mg/dL Med Orders - Current: Current Medications Acetaminophen (Tylenol) 650 mg PO Q4H PRN PRN Reason: Pain (Mild 1-3)/fever Last Admin: 09/20/16 22:00 Dose: 650 mg Atorvastatin Calcium (Lipitor) 20 mg PO BEDTIME [facility] Last Admin: 09/21/16 21:01 Dose: 20 mg Glyburide (Micronase) 10 mg PO BIDAC [facility] Insulin Aspart (Novolog) 0 unit SUBCUT QIDACANDBED [facility] PRN Reason: Protocol Last Admin: 09/22/16 08:21 Dose: 1 units Magnesium Hydroxide (Milk Of Magnesia) 30 ml PO BID PRN PRN Reason: Constipation Metoprolol Tartrate (Lopressor) 12.5 mg PO BID [facility] Last Admin: 09/22/16 08:18 Dose: 12.5 mg Morphine Sulfate (Morphine) 2 mg IVPUSH Q2H PRN PRN Reason: Chest Pain Ondansetron HCl (Zofran Odt) 4 mg PO Q6H PRN PRN Reason: Nausea able to take PO Last Admin: 09/22/16 09:48 Dose: 4 mg Polyethylene Glycol (Miralax) 17 gm PO DAILY PRN PRN Reason: Constipation Senna/Docusate Sodium (Senna Plus) 1 tab PO BID PRN PRN Reason: Constipation Last Admin: 09/21/16 23:26 Dose: 1 tab Sodium Chloride (Saline Flush) 10 ml FLUSH ASDIRECTED PRN PRN Reason: Keep Vein Open Last Admin: 09/20/16 15:52 Dose: 10 ml Triamcinolone Acetonide (Triamcinolone Acetonide 0.1% Crm) 0 gm TOP BID [facility] Last Admin: 09/22/16 08:23 Dose: 1 applic Discontinued Medications Furosemide (Lasix) 60 mg IVPUSH ONETIME ONE Stop: 09/20/16 16:42 Last Admin: 09/20/16 17:07 Dose: 60 mg Furosemide (Lasix) 40 mg IVPUSH NOW ONE Stop: 09/21/16 09:46 Last Admin: 09/21/16 09:50 Dose: 40 mg Furosemide (Lasix) 40 mg IVPUSH DAILY [facility] Last Admin: 09/22/16 09:24 Dose: Not Given Glyburide (Micronase) 5 mg PO BIDAC [facility] Last Admin: 09/22/16 08:17 Dose: 5 mg Magnesium Sulfate 2 gm/ Premix 50 mls @ 25 mls/hr IV Q6H [facility] Stop: 09/21/16 22:59 Last Admin: 09/21/16 21:02 Dose: 25 mls/hr Insulin Aspart (Novolog) 0 unit SUBCUT QIDACANDBED [facility] PRN Reason: Protocol Last Admin: 09/21/16 08:09 Dose: 4 units Insulin Aspart (Novolog) 10 unit SUBCUT NOW ONE Stop: 09/20/16 21:16 Last Admin: 09/20/16 21:22 Dose: 10 units Metformin HCl (Glucophage) 500 mg PO TIDMEALS [facility] Last Admin: 09/21/16 13:50 Dose: Not Given Metformin HCl (Glucophage) 500 mg PO BIDMEALS [facility] Last Admin: 09/22/16 08:17 Dose: 500 mg Nitroglycerin (Nitrostat) 0.4 mg SL Q5M PRN PRN Reason: Chest Pain Stop: 09/21/16 15:33 Last Admin: 09/20/16 15:51 Dose: 0.4 mg Potassium Chloride (Klor-Con M20) 40 meq PO ONETIME ONE Stop: 09/21/16 09:01 Last Admin: 09/21/16 09:48 Dose: 40 meq - Exam Quality Assessment: No: supplemental oxygen General: alert, cooperative, no acute distress Neck: supple Lungs: Normal respiratory effort, Crackles (rare at right lung base). No: Wheezing Cardiovascular: Regular Rate, Regular Rhythm, Murmurs Abdomen: soft, no distension, tenderness Extremities: no cyanosis, edema (mild bilateral ankle edema) Skin: warm, dry Psy/Mental Status: alert, normal affect - Problem List & Annotations (1) Congestive heart failure SNOMED Code(s): 32340044 Code(s): I50.9 - HEART FAILURE, UNSPECIFIED Status: Acute Current Visit: Yes Qualifiers: Congestive heart failure type: unspecified congestive heart failure type Congestive heart failure chronicity: acute Qualified Code(s): I50.9 - Heart failure, unspecified (2) Diabetes mellitus with hyperglycemia SNOMED Code(s): 35794402, 01647185, 773391421 Code(s): E11.65 - TYPE 2 DIABETES MELLITUS WITH HYPERGLYCEMIA Status: Acute Current Visit: Yes Qualifiers: Diabetes mellitus type: type 2 Diabetes mellitus jail insulin use: without buttermaker use Qualified Code(s): E11.65 - Type 2 diabetes mellitus with hyperglycemia (3) Dementia SNOMED Code(s): 25304778 Code(s): F03.90 - UNSPECIFIED DEMENTIA WITHOUT BEHAVIORAL DISTURBANCE Status: Chronic Current Visit: Yes Qualifiers: Dementia type: Alzheimer's disease Alzheimer's disease onset: late-onset Dementia behavioral disturbance: without behavioral disturbance Qualified Code (s): G30.1 - Alzheimer's disease with late onset; F02.80 - Dementia in other diseases classified elsewhere without behavioral disturbance (4) Stage III chronic kidney disease SNOMED Code(s): 496450507 Code(s): N18.3 - CHRONIC KIDNEY DISEASE, STAGE 3 (MODERATE) Status: Chronic Current Visit: Yes - Problem List Review Problem List Initiated/Reviewed/Updated: Yes - My Orders Last 24 Hours: My Active Orders 09/21/16 10:30 Metoprolol Tartrate [Lopressor] 12.5 mg PO BID 09/21/16 11:00 Insulin Aspart [NovoLOG] See Protocol SUBCUT QIDACANDBED 09/22/16 11:18 Magnesium Hydroxide [Milk of Magnesia] 30 ml PO BID PRN 09/22/16 11:30 GLUCOSE POC LAB TO COLLECT [POC] QIDACANDBED 09/22/16 16:30 GLUCOSE POC LAB TO COLLECT [POC] QIDACANDBED glyBURIDE [Micronase] 10 mg PO BIDAC 09/22/16 21:00 GLUCOSE POC LAB TO COLLECT [POC] QIDACANDBED 09/23/16 05:00 BASIC METABOLIC PANEL,BMP [CHEM] Timed 09/23/16 07:00 Echo Comp wo Cont [US] Routine 09/23/16 07:30 GLUCOSE POC LAB TO COLLECT [POC] QIDACANDBED 09/23/16 11:30 GLUCOSE POC LAB TO COLLECT [POC] QIDACANDBED 09/23/16 16:30 GLUCOSE POC LAB TO COLLECT [POC] QIDACANDBED 09/23/16 21:00 GLUCOSE POC LAB TO COLLECT [POC] QIDACANDBED 09/24/16 07:30 GLUCOSE POC LAB TO COLLECT [POC] QIDACANDBED 09/24/16 11:30 GLUCOSE POC LAB TO COLLECT [POC] QIDACANDBED 09/24/16 16:30 GLUCOSE POC LAB TO COLLECT [POC] QIDACANDBED 09/24/16 21:00 GLUCOSE POC LAB TO COLLECT [POC] QIDACANDBED 09/25/16 07:30 GLUCOSE POC LAB TO COLLECT [POC] QIDACANDBED 09/25/16 11:30 GLUCOSE POC LAB TO COLLECT [POC] QIDACANDBED 09/25/16 16:30 GLUCOSE POC LAB TO COLLECT [POC] QIDACANDBED 09/25/16 21:00 GLUCOSE POC LAB TO COLLECT [POC] QIDACANDBED 09/26/16 07:30 GLUCOSE POC LAB TO COLLECT [POC] QIDACANDBED - Plan Plan:: Assessment and plan - New-onset congestive heart failure - bedside ultrasound showed thickening of the myocardium but no major valve issues and a normal ejection fraction. I suspect this is more of a diastolic congestive heart failure-type picture with long-standing diabetes. Volume status dramatically better today and creatinine slightly elevated. Tolerating beta daly. -Hold diuretics today, reassess tomorrow -Echo on -Continue low-dose beta daly -Consider low-dose MARJAN inhibitor, hold for now based on rising creatinine with diuresis Diabetes mellitus type 2 with hyperglycemia - Sugars have been moderately elevated. With rising creatinine metformin will be discontinued. -Sliding-scale insulin overnight -Continue glyburide but increase dose to 10 mg twice daily -Discontinue metformin with poor creatinine clearance Probable Alzheimer's dementia - No major issues or behavior issues at this time. -room close to the nurse's station and watch for Stage III CKD - creatinine level has risen slightly with diuresis. -Hold diuretics, labs in the morning Maintenance issues - - DVT prophylaxis - mechanical - GI prophylaxis - not indicated - Nutrition - low sodium - Manzano catheter - removed 09/21 Disposition - anticipate discharge to home after the hospital stay Dariusz Flores M.D.
[2016-09-22] MEDS: atorvaSTATin 20 MG Tab PO SCH (20:50)
[2016-09-23] MEDS ORDERED: Furosemide 40 MG Tab PO ONE (06:18)
[2016-09-23] MEDS: Insulin Aspart 100 Units/ML 3 ML Pen SUBCUT SCH ×4 (07:31→20:48)
[2016-09-23] MEDS: Metoprolol Tartrate 25 MG Tab PO SCH ×2 (09:12→20:50)
[2016-09-23] MEDS: Triamcinolone Acetonide 0.1% Crm 15 GM Tube TOP SCH ×2 (09:13→20:49)
--- NOTE | 2016-09-23 09:28 | CT ---
Abdomen Pelvis wo Cont HISTORY: Lower abdominal pain, nausea. Dose: Total DLP 729. COMPARISON: None FINDINGS: Limited study due to lack of IV and oral contrast. Upper lung bases there are small pleural effusions with some adjacent compressive atelectatic change . The liver demonstrates tiny cyst at the inferior right hepatic lobe measuring 1 cm. The spleen, pa ncreas, adrenal glands appear normal. Abdominal aorta is normal in caliber. Moderate size cyst right kidney measuring 6.5 x 5.9 cm additional small adjacent cyst right kidney measuring 2.7 cm. Tiny ga llstones in the gallbladder. There is no hydronephrosis bilaterally. Cyst superior pole left kidney measuring 2.2 cm. No bowel obstruction. There are multiple diverticula in the sigmoid colon no evide nce for diverticulitis. No adenopathy. No free fluid. Impression: 1. No direct findings for pain. 2. Multiple liver cysts greater on the right no hydronephrosis. 3. Sigmoid diverticulosis no evidence for diverticulitis. 4. Gallstones. 5. Small pleural effusion with adjacent compressive atelectatic change.
--- NOTE | 2016-09-23 10:06 | PCM.PN ---
- General Info Date of Service: 09/23/16 Functional Status: Reports: pain controlled, ambulating - Review of Systems General: Reports: Weakness Pulmonary: Reports: shortness of breath Gastrointestinal: Reports: Nausea Systems Review Comment:: No acute events overnight but this morning she did have a sensation of tightness in her chest and some mild shortness of breath. She also had some nausea this morning. The shortness of breath resolved after a dose of oral furosemide. A CT scan of the abdomen and pelvis did not show acute pathology. She's feeling better by the time I am seeing her on morning rounds. No complaints of abdominal pain or nausea at this time. Blood sugars have been good with rare exceptions. Echocardiogram plan for this morning. - Patient Data Vitals - most recent: Last Vital Signs Temp 35.8 C 09/23/16 06:12 Pulse 98 09/23/16 09:12 Resp 18 09/23/16 06:12 BP 125/85 09/23/16 09:12 Pulse Ox 94 L 09/23/16 06:12 Weight - most recent: 73.754 kg I&O - last 24 hours: Intake & Output 09/22/16 09/23/16 09/23/16 22:59 06:59 14:59 Intake Total 400 200 240 Output Total 775 Balance 400 200 -535 Lab Results last 24 hrs: Laboratory Results - last 24 hr 09/23/16 Range/Units 04:32 Sodium 136 L (140-148) mmol/L Potassium 3.9 (3.6-5.2) mmol/L Chloride 99 L (100-108) mmol/L Carbon Dioxide 28 (21-32) mmol/L Anion Gap 12.9 (5.0-14.0) mmol/L BUN 29 H (7-18) mg/dL Creatinine 1.3 H (0.6-1.0) mg/dL Est Cr Clr Drug Dosing 22.14 mL/min Estimated GFR (MDRD) 39 L (>60) Glucose 180 H (74-106) mg/dL Calcium 8.5 (8.5-10.1) mg/dL Med Orders - Current: Current Medications Acetaminophen (Tylenol) 650 mg PO Q4H PRN PRN Reason: Pain (Mild 1-3)/fever Last Admin: 09/20/16 22:00 Dose: 650 mg Atorvastatin Calcium (Lipitor) 20 mg PO BEDTIME [facility] Last Admin: 09/22/16 20:50 Dose: 20 mg Glyburide (Micronase) 10 mg PO BIDAC [facility] Last Admin: 09/23/16 07:31 Dose: 10 mg Insulin Aspart (Novolog) 0 unit SUBCUT QIDACANDBED [facility] PRN Reason: Protocol Last Admin: 09/23/16 07:31 Dose: 1 units Magnesium Hydroxide (Milk Of Magnesia) 30 ml PO BID PRN PRN Reason: Constipation Metoprolol Tartrate (Lopressor) 12.5 mg PO BID [facility] Last Admin: 09/23/16 09:12 Dose: 12.5 mg Morphine Sulfate (Morphine) 2 mg IVPUSH Q2H PRN PRN Reason: Chest Pain Ondansetron HCl (Zofran Odt) 4 mg PO Q6H PRN PRN Reason: Nausea able to take PO Last Admin: 09/22/16 09:48 Dose: 4 mg Polyethylene Glycol (Miralax) 17 gm PO DAILY PRN PRN Reason: Constipation Senna/Docusate Sodium (Senna Plus) 1 tab PO BID PRN PRN Reason: Constipation Last Admin: 09/21/16 23:26 Dose: 1 tab Sodium Chloride (Saline Flush) 10 ml FLUSH ASDIRECTED PRN PRN Reason: Keep Vein Open Last Admin: 09/20/16 15:52 Dose: 10 ml Triamcinolone Acetonide (Triamcinolone Acetonide 0.1% Crm) 0 gm TOP BID [facility] Last Admin: 09/23/16 09:13 Dose: 1 applic Discontinued Medications Furosemide (Lasix) 60 mg IVPUSH ONETIME ONE Stop: 09/20/16 16:42 Last Admin: 09/20/16 17:07 Dose: 60 mg Furosemide (Lasix) 40 mg IVPUSH NOW ONE Stop: 09/21/16 09:46 Last Admin: 09/21/16 09:50 Dose: 40 mg Furosemide (Lasix) 40 mg IVPUSH DAILY [facility] Last Admin: 09/22/16 09:24 Dose: Not Given Furosemide (Lasix) 40 mg PO ONETIME ONE Stop: 09/23/16 06:19 Last Admin: 09/23/16 06:26 Dose: 40 mg Glyburide (Micronase) 5 mg PO BIDAC [facility] Last Admin: 09/22/16 08:17 Dose: 5 mg Magnesium Sulfate 2 gm/ Premix 50 mls @ 25 mls/hr IV Q6H [facility] Stop: 09/21/16 22:59 Last Admin: 09/21/16 21:02 Dose: 25 mls/hr Insulin Aspart (Novolog) 0 unit SUBCUT QIDACANDBED [facility] PRN Reason: Protocol Last Admin: 09/21/16 08:09 Dose: 4 units Insulin Aspart (Novolog) 10 unit SUBCUT NOW ONE Stop: 09/20/16 21:16 Last Admin: 09/20/16 21:22 Dose: 10 units Metformin HCl (Glucophage) 500 mg PO TIDMEALS [facility] Last Admin: 09/21/16 13:50 Dose: Not Given Metformin HCl (Glucophage) 500 mg PO BIDMEALS [facility] Last Admin: 09/22/16 08:17 Dose: 500 mg Nitroglycerin (Nitrostat) 0.4 mg SL Q5M PRN PRN Reason: Chest Pain Stop: 09/21/16 15:33 Last Admin: 09/20/16 15:51 Dose: 0.4 mg Potassium Chloride (Klor-Con M20) 40 meq PO ONETIME ONE Stop: 09/21/16 09:01 Last Admin: 09/21/16 09:48 Dose: 40 meq - Exam Quality Assessment: No: supplemental oxygen General: alert, oriented, cooperative, no acute distress Neck: supple Lungs: Normal respiratory effort, Decreased breath sounds (mild at bases), Crackles (rare right lung base) Cardiovascular: Regular Rate, Regular Rhythm, Murmurs Abdomen: soft, no tenderness, no distension Extremities: normal pulses, no cyanosis, edema (pitting edema both ankles) Skin: warm, dry Psy/Mental Status: alert, normal affect - Problem List & Annotations (1) Congestive heart failure SNOMED Code(s): 01021730 Code(s): I50.9 - HEART FAILURE, UNSPECIFIED Status: Acute Current Visit: Yes Qualifiers: Congestive heart failure type: unspecified congestive heart failure type Congestive heart failure chronicity: acute Qualified Code(s): I50.9 - Heart failure, unspecified (2) Diabetes mellitus with hyperglycemia SNOMED Code(s): 56795965, 29201987, 424583338 Code(s): E11.65 - TYPE 2 DIABETES MELLITUS WITH HYPERGLYCEMIA Status: Acute Current Visit: Yes Qualifiers: Diabetes mellitus type: type 2 Diabetes mellitus bed bug exterminator insulin use: without bed bug exterminator use Qualified Code(s): E11.65 - Type 2 diabetes mellitus with hyperglycemia (3) Dementia SNOMED Code(s): 84178379 Code(s): F03.90 - UNSPECIFIED DEMENTIA WITHOUT BEHAVIORAL DISTURBANCE Status: Chronic Current Visit: Yes Qualifiers: Dementia type: Alzheimer's disease Alzheimer's disease onset: late-onset Dementia behavioral disturbance: without behavioral disturbance Qualified Code (s): G30.1 - Alzheimer's disease with late onset; F02.80 - Dementia in other diseases classified elsewhere without behavioral disturbance (4) Stage III chronic kidney disease SNOMED Code(s): 239540850 Code(s): N18.3 - CHRONIC KIDNEY DISEASE, STAGE 3 (MODERATE) Status: Chronic Current Visit: Yes - Problem List Review Problem List Initiated/Reviewed/Updated: Yes - My Orders Last 24 Hours: My Active Orders 09/22/16 11:18 Magnesium Hydroxide [Milk of Magnesia] 30 ml PO BID PRN 09/22/16 16:30 glyBURIDE [Micronase] 10 mg PO BIDAC 09/23/16 07:00 Echo Comp wo Cont [US] Routine 09/23/16 10:15 Pantoprazole [ProTONIX] 40 mg PO DAILY 09/23/16 11:30 GLUCOSE POC LAB TO COLLECT [POC] QIDACANDBED 09/23/16 16:30 GLUCOSE POC LAB TO COLLECT [POC] QIDACANDBED 09/23/16 21:00 GLUCOSE POC LAB TO COLLECT [POC] QIDACANDBED 09/24/16 05:00 BASIC METABOLIC PANEL,BMP [CHEM] Timed 09/24/16 07:30 GLUCOSE POC LAB TO COLLECT [POC] QIDACANDBED 09/24/16 09:00 Furosemide [Lasix] 40 mg PO DAILY Metoprolol Succinate [Toprol XL] 25 mg PO DAILY 09/24/16 11:30 GLUCOSE POC LAB TO COLLECT [POC] QIDACANDBED 09/24/16 16:30 GLUCOSE POC LAB TO COLLECT [POC] QIDACANDBED 09/24/16 21:00 GLUCOSE POC LAB TO COLLECT [POC] QIDACANDBED 09/25/16 07:30 GLUCOSE POC LAB TO COLLECT [POC] QIDACANDBED 09/25/16 11:30 GLUCOSE POC LAB TO COLLECT [POC] QIDACANDBED 09/25/16 16:30 GLUCOSE POC LAB TO COLLECT [POC] QIDACANDBED 09/25/16 21:00 GLUCOSE POC LAB TO COLLECT [POC] QIDACANDBED 09/26/16 07:30 GLUCOSE POC LAB TO COLLECT [POC] QIDACANDBED - Plan Plan:: Assessment and plan - New-onset congestive heart failure - bedside ultrasound showed thickening of the myocardium but no major valve issues and a normal ejection fraction. I suspect this is more of a diastolic congestive heart failure-type picture with long-standing diabetes. Volume status dramatically better today and creatinine slightly elevated. Tolerating beta daly. -Restart diuresis today -Followup echo -Continue low-dose beta daly, transition to metoprolol tartrate in the morning -Consider low-dose MARJAN inhibitor as an outpatient, administration limited by the low blood pressure and renal function Persistent nausea - patient reports trouble for some months. CT scan was unremarkable today. She does endorse some difficulties with heartburn. Does not seem to be food related. -Trial of PPI Diabetes mellitus type 2 with hyperglycemia - Sugars have been moderately elevated but do seem to be slowly improving. -Sliding-scale insulin overnight -Continue glyburide 10 mg twice daily -Discontinue metformin with poor creatinine clearance Probable Alzheimer's dementia - No major issues or behavior issues at this time. -room close to the nurse's station and watch for Stage III CKD - creatinine level has risen slightly with diuresis. -Restarting diuretics as above Maintenance issues - - DVT prophylaxis - mechanical - GI prophylaxis - PPI initiated today - Nutrition - low sodium - Manzano catheter - removed 09/21 Disposition - anticipate discharge to home after the hospital stay, hopefully tomorrow Dariusz Flores M.D.
[2016-09-23] MEDS: Pantoprazole 40 MG Tab.CR PO SCH (11:19)
[2016-09-23] MEDS: atorvaSTATin 20 MG Tab PO SCH (20:51)
[2016-09-23] MEDS: Acetaminophen 325 MG Tab PO PRN (21:25)
[2016-09-24] MEDS: Pantoprazole 40 MG Tab.CR PO SCH (07:38)
[2016-09-24] MEDS: Insulin Aspart 100 Units/ML 3 ML Pen SUBCUT SCH ×2 (07:39→11:50)
[2016-09-24] MEDS ORDERED: Furosemide 40 MG Tab PO SCH (09:00)
[2016-09-24] MEDS: Triamcinolone Acetonide 0.1% Crm 15 GM Tube TOP SCH (09:00)
[2016-09-24] MEDS ORDERED: Metoprolol Succinate 25 MG Tab.ER PO SCH (09:00)
--- NOTE | 2016-09-24 10:55 | PCM.DCSUM1 ---
Discharge Summary - Hospital Course Brief History: 89-year-old female with history of diabetes mellitus and dementia who presented with weakness and shortness of breath. Work up in the emergency room suggested acute congestive heart failure and significant hyperglycemia. She was admitted for management. - Discharge Data Discharge Date: 09/24/16 Discharge Disposition: Home, [facility] 06 Condition: Fair - Discharge Diagnosis/Problem(s) (1) Congestive heart failure SNOMED Code(s): 55736933 ICD Code: I50.9 - HEART FAILURE, UNSPECIFIED Status: Acute Qualifiers: Congestive heart failure type: diastolic Congestive heart failure chronicity: acute Qualified Code(s): I50.31 - Acute diastolic (congestive) heart failure (2) Diabetes mellitus with hyperglycemia SNOMED Code(s): 87304175, 99442462, 759906750 ICD Code: E11.65 - TYPE 2 DIABETES MELLITUS WITH HYPERGLYCEMIA Status: Acute Qualifiers: Diabetes mellitus type: type 2 Diabetes mellitus intermission coordinator insulin use: without intermission coordinator use Qualified Code(s): E11.65 - Type 2 diabetes mellitus with hyperglycemia (3) Dementia SNOMED Code(s): 11776296 ICD Code: F03.90 - UNSPECIFIED DEMENTIA WITHOUT BEHAVIORAL DISTURBANCE Status: Chronic Qualifiers: Dementia type: Alzheimer's disease Alzheimer's disease onset: late-onset Dementia behavioral disturbance: without behavioral disturbance Qualified Code (s): G30.1 - Alzheimer's disease with late onset; F02.80 - Dementia in other diseases classified elsewhere without behavioral disturbance (4) Stage III chronic kidney disease SNOMED Code(s): 164809045 ICD Code: N18.3 - CHRONIC KIDNEY DISEASE, STAGE 3 (MODERATE) Status: Chronic - Patient Summary/Data Consults: Consultations 09/20/16 18:40 PT Evaluation and Treatment [CONS] Routine Please Evaluate and Treat. PT Reason for Consult: Strengthening This query below is only for informational purposes and is not editable. Hospital Course: Isma presented to the emergency room with progressive weakness and shortness of breath. Workup in the emergency room was remarkable for evidence suggesting congestive heart failure with bilateral pleural effusions and elevated BNP. Exam was compatible as well. She was given a dose of furosemide and admitted to the hospital for further management. Additional problems encountered at the time of admission included some increase in her dementia symptoms as well as hyperglycemia. Also noted a increase in her creatinine from baseline and a GFR of less than 30. Over the first couple of days with IV diuresis she did have clinical improvement. Her chest tightness resolved and she was able to improve her functional status. She was weak at the time of presentation but has made significant improvements over the next few days. On the third day of hospitalization we noted a rise in her creatinine and we held off on her diuresis today. The following day her creatinine had improved but still had her chest pressure. We initiated oral diuresis at this point with good response. Third hospital day was also the day we are able to obtain an echocardiogram. This showed normal left ventricular function and only minor valvular abnormalities. She did have a thickened myocardium and likely has a diastolic congestive heart failure-type picture. We did initiate a short acting beta daly the day after admission and have transitioned her to a long- acting version with improvement in her heart rate instability and her blood pressure. We did not initiate an MARJAN inhibitor during the hospital stay because of the fluctuations in her renal function and borderline low blood pressure. With her diuresis she has improved to the point that I think she safe for outpatient management. Her functional status has been improving. She has not been hypoxic. She does have small effusions left but I think these will resolve over time with additional diuresis and heart failure management. Regarding her diabetes, I held her oral medications at the time of admission. He did restart the sulfonylurea the day after admission we held the metformin with her poor creatinine clearance. We did provide some supplemental insulin. I elected to increase the dose of her sulfonylurea and discontinue her metformin with a creatinine clearance mentioned above. I don't believe that the sulfonylurea is a great option for her either but she was not interested in long-acting insulin and her family feels that this will be very difficult. I think at this point it safe to try the sulfonylurea for a while and see how things go. She will need to be closely monitored for hypoglycemia and we did provide a prescription for a new glucose meter. Blood sugars during the last 24 hours of the hospital stay have been between 150 and 180. As mentioned she did have generalized weakness on arrival and this has been improving. I do think she would benefit from some ongoing physical therapy. We did complete the paperwork for home health care to provide physical and occupational therapy. - Patient Instructions Diet: Diabetic Diet Activity: As Tolerated Driving: Do Not Drive Showering/Bathing: May Shower Notify Provider of: Fever, Increased Pain, Nausea and/or Vomiting Other/Special Instructions: 1. You were in the hospital for management of new onset congestive heart failure. The echocardiogram showed your heart function is normal. You have a mildly leaky mitral valve and the heart appears to have trouble realxing (diastolic heart failure). we have started 2 new medications to help manage her congestive heart failure. You should take metoprolol succinate 25 mg once daily in the morning. This medication helps to slow down the heart rate and make it more efficient well it's pumping blood around. You should also take furosemide (Lasix) 40 mg once daily in the morning. This medication helps reduce the fluid and therefore the stress on the heart. You should seek medical attention if you have a sudden weight gain somewhat more than 3 pounds or if you have increasing swelling of your legs or increasing shortness of breath. 2. I have prescribed omeprazole 40 mg. You should take this once daily to help reduce the acid in your stomach and hopefully improve your and chronic nausea. 3. I have placed a referral for home health services to provide physical therapy and occupational therapy. This will help improve your strength and endurance and can provide an exercise regimen for use at home. 4. Regarding your diabetes care: I have discontinued the metformin because of potential difficulties caused by your mildly reduced kidney function. I have increased your glyburide to 10 mg twice daily. I have completed prescriptions for testing supplies. I would recommend that you test your blood sugar once daily in the morning to get a better idea of what your blood sugars look like and to help adjust medications if needed. 5. Please seek medical attention if you develop fever greater than 101, have persistent nausea and vomiting or severe abdominal pain. - Discharge Plan Prescriptions/Med Rec: Furosemide [Lasix] 40 mg PO DAILY #30 tablet Metoprolol Succinate [Toprol XL] 25 mg PO DAILY #30 tab.er Omeprazole 40 mg PO DAILY #30 cap.sr glyBURIDE [Glyburide] 10 mg PO BIDAC #120 tablet Home Medications: Home Meds Triamcinolone Acetonide [Triamcinolone Acetonide 0.1% Crm] 1 inch TOP TID [History] atorvaSTATin [Lipitor] 20 mg PO BEDTIME 09/20/16 [History] Furosemide [Lasix] 40 mg PO DAILY #30 tablet 09/24/16 [Rx] Metoprolol Succinate [Toprol XL] 25 mg PO DAILY #30 tab.er 09/24/16 [Rx] Omeprazole 40 mg PO DAILY #30 cap.sr 09/24/16 [Rx] glyBURIDE [Glyburide] 10 mg PO BIDAC #120 tablet 09/24/16 [Rx] Patient Handouts: Heart Failure, Diabetes Mellitus and Food Referrals: Rd Luna MD [Primary Care Provider] - (f/u in 1-2 weeks - f/u hospital stay for new CHF, DM II) - Discharge Summary/Plan Comment DC Time >30 min.: Yes (45) - Patient Data Vitals - Most Recent: Last Vital Signs Temp 34.7 C L 09/24/16 06:57 Pulse 81 09/24/16 09:03 Resp 18 09/24/16 06:57 BP 120/85 09/24/16 09:03 Pulse Ox 96 09/24/16 06:57 Weight - Most Recent: 73.573 kg I&O - Last 24 hours: Intake & Output 09/23/16 09/24/16 09/24/16 22:59 06:59 14:59 Intake Total 240 360 Output Total 300 Balance -60 360 Lab Results - Last 24 hrs: Laboratory Results - last 24 hr 09/24/16 Range/Units 05:00 Sodium 137 L (140-148) mmol/L Potassium 3.7 (3.6-5.2) mmol/L Chloride 99 L (100-108) mmol/L Carbon Dioxide 27 (21-32) mmol/L Anion Gap 14.7 H (5.0-14.0) mmol/L BUN 27 H (7-18) mg/dL Creatinine 1.1 H (0.6-1.0) mg/dL Est Cr Clr Drug Dosing 26.16 mL/min Estimated GFR (MDRD) 47 L (>60) Glucose 165 H (74-106) mg/dL Calcium 8.5 (8.5-10.1) mg/dL Med Orders - Current: Current Medications Acetaminophen (Tylenol) 650 mg PO Q4H PRN PRN Reason: Pain (Mild 1-3)/fever Last Admin: 09/23/16 21:25 Dose: 650 mg Atorvastatin Calcium (Lipitor) 20 mg PO BEDTIME KENRICK Last Admin: 09/23/16 20:51 Dose: 20 mg Furosemide (Lasix) 40 mg PO DAILY [facility] Last Admin: 09/24/16 09:01 Dose: 40 mg Glyburide (Micronase) [facility] Last Admin: 09/24/16 07:38 Dose: 10 mg Insulin Aspart (Novolog) 0 unit SUBCUT QIDACANDBED [facility] PRN Reason: Protocol Last Admin: 09/24/16 07:39 Dose: 1 units Magnesium Hydroxide (Milk Of Magnesia) 30 ml PO BID PRN PRN Reason: Constipation Metoprolol Succinate (Toprol Xl) 25 mg PO DAILY [facility] Last Admin: 09/24/16 09:03 Dose: 25 mg Morphine Sulfate (Morphine) 2 mg IVPUSH Q2H PRN PRN Reason: Chest Pain Ondansetron HCl (Zofran Odt) 4 mg PO Q6H PRN PRN Reason: Nausea able to take PO Last Admin: 09/22/16 09:48 Dose: 4 mg Pantoprazole Sodium (Protonix) 40 mg PO DAILY@0730 [facility] Last Admin: 09/24/16 07:38 Dose: 40 mg Polyethylene Glycol (Miralax) 17 gm PO DAILY PRN PRN Reason: Constipation Senna/Docusate Sodium (Senna Plus) 1 tab PO BID PRN PRN Reason: Constipation Last Admin: 09/21/16 23:26 Dose: 1 tab Sodium Chloride (Saline Flush) 10 ml FLUSH ASDIRECTED PRN PRN Reason: Keep Vein Open Last Admin: 09/20/16 15:52 Dose: 10 ml Triamcinolone Acetonide (Triamcinolone Acetonide 0.1% Crm) 0 gm TOP BID [facility] Last Admin: 09/24/16 09:00 Dose: 1 applic Discontinued Medications Furosemide (Lasix) 60 mg IVPUSH ONETIME ONE Stop: 09/20/16 16:42 Last Admin: 09/20/16 17:07 Dose: 60 mg Furosemide (Lasix) 40 mg IVPUSH NOW ONE Stop: 09/21/16 09:46 Last Admin: 09/21/16 09:50 Dose: 40 mg Furosemide (Lasix) 40 mg IVPUSH DAILY [facility] Last Admin: 09/22/16 09:24 Dose: Not Given Furosemide (Lasix) 40 mg PO ONETIME ONE Stop: 09/23/16 06:19 Last Admin: 09/23/16 06:26 Dose: 40 mg Glyburide (Micronase) 5 mg PO BIDAC [facility] Last Admin: 09/22/16 08:17 Dose: 5 mg Magnesium Sulfate 2 gm/ Premix 50 mls @ 25 mls/hr IV Q6H [facility] Stop: 09/21/16 22:59 Last Admin: 09/21/16 21:02 Dose: 25 mls/hr Insulin Aspart (Novolog) 0 unit SUBCUT QIDACANDBED [facility] PRN Reason: Protocol Last Admin: 09/21/16 08:09 Dose: 4 units Insulin Aspart (Novolog) 10 unit SUBCUT NOW ONE Stop: 09/20/16 21:16 Last Admin: 09/20/16 21:22 Dose: 10 units Metformin HCl (Glucophage) 500 mg PO TIDMEALS [facility] Last Admin: 09/21/16 13:50 Dose: Not Given Metformin HCl (Glucophage) 500 mg PO BIDMEALS [facility] Last Admin: 09/22/16 08:17 Dose: 500 mg Metoprolol Tartrate (Lopressor) 12.5 mg PO BID [facility] Stop: 09/23/16 23:00 Last Admin: 09/23/16 20:50 Dose: 12.5 mg Nitroglycerin (Nitrostat) 0.4 mg SL Q5M PRN PRN Reason: Chest Pain Stop: 09/21/16 15:33 Last Admin: 09/20/16 15:51 Dose: 0.4 mg Potassium Chloride (Klor-Con M20) 40 meq PO ONETIME ONE Stop: 09/21/16 09:01 Last Admin: 09/21/16 09:48 Dose: 40 meq *Q Meaningful Use (DIS) - VTE *Q VTE Criteria *Q: - Stroke *Q Stroke Criteria *Q: - AMI *Q AMI Criteria *Q:
[2016-09-24 11:02] VITALS: BP 131/83
== END 2016-09-24 12:54 | disposition home health service (06) | DRG 291 ==
LOC: JP.ED 14:56 → JP.MS 17:17
PROVIDERS: ADMIT Internal Medicine; ATTEND Internal Medicine
DX: I13.0 Hypertensive heart and chronic kidney disease with heart failure and stage 1 through stage 4 chronic kidney disease, or unspecified chronic kidney disease (principal); I50.31 Acute diastolic (congestive) heart failure; E11.65 Type 2 diabetes mellitus with hyperglycemia; E11.22 Type 2 diabetes mellitus with diabetic chronic kidney disease; Z79.84 Long term (current) use of oral hypoglycemic drugs; G30.1 Alzheimer's disease with late onset; F02.80 Dementia in other diseases classified elsewhere, unspecified severity, without behavioral disturbance, psychotic disturbance, mood disturbance, and anxiety; N18.3 Chronic kidney disease, stage 3 (moderate); Z66 Do not resuscitate; R53.1 Weakness; R06.02 Shortness of breath; R07.89 Other chest pain; R11.0 Nausea; E78.00 Pure hypercholesterolemia, unspecified; K21.9 Gastro-esophageal reflux disease without esophagitis; M19.90 Unspecified osteoarthritis, unspecified site; Z87.440 Personal history of urinary (tract) infections; H54.7 Unspecified visual loss; Z96.659 Presence of unspecified artificial knee joint
CPT/HCPCS: 36415; 51702; 71010 ×2; 80053; 82962; 83880; 84484; 85025; 93005; 96374; 99285; A9270; J1940; J7050; 74176; 74176-26; 80048; 81001; 83036; 83735; 84132; 84443; 85027; 93010; 93306; 97110-GP; 97116-GP; 97162-GP; 97530-GP; J3475

== ENCOUNTER 2016-09-29 15:12 | Inpatient (IN) | payer MEDICARE, OTHER ==
[2016-09-29] MEDS ORDERED: Sodium Chloride 0.9% 10 ML Syringe FLUSH PRN ×2 (15:52→19:21)
--- NOTE | 2016-09-29 15:57 | EDM.PDOC ---
ED HISTORY OF PRESENT ILLNESS - General Chief Complaint: Respiratory Problem Stated Complaint: BREATHING DIFFICULTY/FLUID IN LUNGS Time Seen by Provider: 09/29/16 15:45 Source: Reports: Patient, Family, Old records, RN notes reviewed History Limitations: Reports: No limitations - History of Present Illness INITIAL COMMENTS - FREE TEXT/NARRATIVE: 89-year-old female presents to the emergency department a complaint of shortness of breath and chest pressure, she has a known history of congestive heart failure was recently discharged from the hospital 4 days prior for exacerbation of new onset congestive heart. She states she has been taking her medications however the last couple days she's been feeling more short of breath with chest pressure and has had weight gain - Related Data Allergies/ADRs: Allergies Allergy/AdvReac Type Severity Reaction Status Date / Time No Known Allergies Allergy Verified 09/20/16 15:02 Home Meds: Home Meds Triamcinolone Acetonide [Triamcinolone Acetonide 0.1% Crm] 1 inch TOP TID [History] atorvaSTATin [Lipitor] 20 mg PO BEDTIME 09/20/16 [History] Furosemide [Lasix] 40 mg PO DAILY #30 tablet 09/24/16 [Rx] Metoprolol Succinate [Toprol XL] 25 mg PO DAILY #30 tab.er 09/24/16 [Rx] Omeprazole 40 mg PO DAILY #30 cap.sr 09/24/16 [Rx] glyBURIDE [Glyburide] 10 mg PO BIDAC #120 tablet 09/24/16 [Rx] Past Medical History HEENT History: Reports: Impaired vision Cardiovascular History: Reports: Heart Failure, High cholesterol, Hypertension Gastrointestinal History: Reports: GERD Genitourinary History: Reports: UTI, recurrent RN PALLIATIVE History: Reports: Musculoskeletal History: Reports: Osteoarthritis 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 Psychiatric History: Reports: Dementia, Depression Endocrine/Metabolic History: Reports: Diabetes, type II Dermatologic History: Reports: Other (see below) Other Dermatologic History: rash under arms,chest - Infectious Disease History Infectious Disease History: Reports: Chicken pox, Measles, Mumps - Past Surgical History GI Surgical History: Reports: Cholecystectomy Female Surgical History: Reports: Hysterectomy, Mastectomy Musculoskeletal Surgical History: Reports: Knee replacement, Shoulder surgery Other Oncologic Surgeries/Procedures: L side Social & Family History - Family History Cardiac: Reports: CAD Respiratory: Reports: COPD Oncologic: Reports: Pancreatic - Tobacco Use Smoking Status *Q: Never Smoker Years of Tobacco use: 0 Second Hand Smoke Exposure: No - Caffeine Use Caffeine Use: Reports: Tea - Alcohol Use Days Per Week of Alcohol Use: 0 - Recreational Drug Use Recreational Drug Use: No ED ROS GENERAL - Review of Systems Review Of Systems: See Below Constitutional: Reports: weight gain HEENT: Reports: No symptoms Respiratory: Reports: Shortness of Breath Cardiovascular: Reports: Chest pain, Dyspnea on exertion GI/Abdominal: Reports: No symptoms : Reports: no symptoms Musculoskeletal: Reports: no symptoms Skin: Reports: no symptoms Neurological: Reports: No Symptoms Psychiatric: Reports: No symptoms ED EXAM, GENERAL - Physical Exam Exam: See Below Free Text/Narrative:: General: Female, not in any distress, alert and oriented x3 HEENT: head is atraumatic normocephalic, eyes pupils equal round reactive to light, sclera clear no conjunctivitis appreciated. Ears tympanic membranes clear and burton landmarks and light reflex are present bilaterally canals are clear. Nose no septal deviation, nares are clear, no blood present. Mouth mucosa is moist and pink no erythema or exudate noted in soft palate, tongue is midline uvula is midline, dentition is intact. Neck: Supple no thyromegaly no tracheal deviation. Nodes: Cervical nodes subclavicular nodes nontender no palpable lymphadenopathy noted. Lungs: Crackles appreciated in the bases bilaterally. CV: Regular rate and rhythm S1 and S2 appreciated grade 2/6 systolic ejection murmur detected left sternal border Abdomen: Soft, nontender, no palpable masses or organomegaly appreciated, no distention no guarding bowel sounds are present, . Neuro: Cranial nerves II through XII grossly intact Skin: Warm and dry, intact Extremities: +1 pitting edema noted bilaterally, pedal pulses +2 Course - Vital Signs Last Recorded V/S: Last Vital Signs Temp 98.2 F 09/29/16 15:31 Pulse 101 H 09/29/16 17:10 Resp 22 H 09/29/16 15:31 BP 137/76 09/29/16 17:10 Pulse Ox 94 L 09/29/16 17:10 - Orders/Labs/Meds Orders: Active Orders 24 hr Category Date Time Status Cardiac Monitoring [RC] .As Directed Care 09/29/16 15:52 Active EKG Documentation Completion [RC] ASDIRECTED Care 09/29/16 15:54 Active Manzano Catheter Insertion [Insert Urinary Catheter] [OM. Care 09/29/16 16:30 Ordered PC] Q24H Peripheral IV Care [RC] . DIRECTED Care 09/29/16 15:54 Active Urinary Catheter Assessment [RC] ASDIRECTED Care 09/29/16 16:21 Active Chest 1V Frontal [CR] Stat Exams 09/29/16 15:54 Taken Sodium Chloride 0.9% [Saline Flush] Med 09/29/16 15:52 Active 10 ml FLUSH ASDIRECTED PRN Peripheral IV Insertion Adult [OM.PC] Stat Oth 09/29/16 15:52 Ordered Saline Lock Insert [OM.PC] Stat Oth 09/29/16 15:52 Ordered EKG 12 Lead [EK] Stat Ther 09/29/16 15:54 Ordered Medication Orders Sodium Chloride (Saline Flush) 10 ml FLUSH ASDIRECTED PRN PRN Reason: Keep Vein Open Last Admin: 09/29/16 15:55 Dose: 10 ml Labs: Laboratory Tests 09/29/16 09/29/16 Range/Units 15:52 15:52 WBC 6.1 (4.5-11.0) K/uL RBC 4.45 (3.30-5.50) M/uL Hgb 14.4 (12.0-15.0) g/dL Hct 42.1 (36.0-48.0) % MCV 95 (80-98) fL MCH 32 H (27-31) pg MCHC 34 (32-36) % Plt Count 275 (150-400) K/uL Neut % (Auto) 61 (36-66) % Lymph % (Auto) 27 (24-44) % Slope % (Auto) 10 H (2-6) % Eos % (Auto) 2 (2-4) % Baso % (Auto) 1 (0-1) % Sodium 138 L (140-148) mmol/L Potassium 3.6 (3.6-5.2) mmol/L Chloride 102 (100-108) mmol/L Carbon Dioxide 27 (21-32) mmol/L Anion Gap 12.6 (5.0-14.0) mmol/L BUN 21 H (7-18) mg/dL Creatinine 1.2 H (0.6-1.0) mg/dL Est Cr Clr Drug Dosing 24.01 mL/min Estimated GFR (MDRD) 42 L (>60) Glucose 287 H (74-106) mg/dL Calcium 8.4 L (8.5-10.1) mg/dL Total Bilirubin 0.3 D (0.2-1.0) mg/dL AST 15 (15-37) U/L ALT 26 (12-78) U/L Alkaline Phosphatase 58 (46-116) U/L Troponin I 0.071 H* (0.000-0.056) ng/mL Opz-A-Ljfquwnuwys Pept 7598 H (5-450) pg/mL Total Protein 6.8 (6.4-8.2) g/dL Albumin 2.9 L (3.4-5.0) g/dL Globulin 3.9 H (2.3-3.5) g/dL Albumin/Globulin Ratio 0.7 L (1.2-2.2) Meds: Medications Generic Name Dose Route Start Last Admin Trade Name Freq PRN Reason Stop Dose Admin Sodium Chloride 10 ml 09/29/16 15:52 09/29/16 15:55 Saline Flush FLUSH 10 ml ASDIRECTED PRN Administration Keep Vein Open Discontinued Medications Generic Name Dose Route Start Last Admin Trade Name Freq PRN Reason Stop Dose Admin Furosemide 40 mg 09/29/16 16:20 09/29/16 16:31 Lasix IVPUSH 09/29/16 16:21 40 mg ONETIME ONE Administration Departure - Departure Time of Disposition: 17:20 Disposition: Admitted As Inpatient 68 Condition: fair Clinical Impression: Congestive heart failure Qualifiers: Congestive heart failure type: diastolic Congestive heart failure chronicity: acute Qualified Code(s): I50.31 - Acute diastolic (congestive) heart failure Forms: ED Department Discharge - My Orders Last 24 Hours: My Active Orders 09/29/16 15:52 Cardiac Monitoring [RC] .As Directed Sodium Chloride 0.9% [Saline Flush] 10 ml FLUSH ASDIRECTED PRN Peripheral IV Insertion Adult [OM.PC] Stat Saline Lock Insert [OM.PC] Stat 09/29/16 15:54 EKG Documentation Completion [RC] ASDIRECTED Peripheral IV Care [RC] . DIRECTED Chest 1V Frontal [CR] Stat EKG 12 Lead [EK] Stat 09/29/16 16:21 Urinary Catheter Assessment [RC] ASDIRECTED 09/29/16 16:30 Manzano Catheter Insertion [Insert Urinary Catheter] [OM.PC] Q24H - Assessment/Plan Last 24 Hours: My Active Orders 09/29/16 15:52 Cardiac Monitoring [RC] .As Directed Sodium Chloride 0.9% [Saline Flush] 10 ml FLUSH ASDIRECTED PRN Peripheral IV Insertion Adult [OM.PC] Stat Saline Lock Insert [OM.PC] Stat 09/29/16 15:54 EKG Documentation Completion [RC] ASDIRECTED Peripheral IV Care [RC] . DIRECTED Chest 1V Frontal [CR] Stat EKG 12 Lead [EK] Stat 09/29/16 16:21 Urinary Catheter Assessment [RC] ASDIRECTED 09/29/16 16:30 Manzano Catheter Insertion [Insert Urinary Catheter] [OM.PC] Q24H Plan: Assessment Acuity = acute on chronic Site and laterality = preserved ejection fraction congestive heart failure Etiology = unclear etiology Manifestations = dyspnea Location of injury = home Lab values = CBC within normal limits sodium of 138 consistent with hyponatremia creatinine elevated at 1.2 consistent with chronic renal failure stage GIV troponin elevated at 0.071 probably related to leak BNP markedly elevated at 7598 axis of the congestive heart failure type pattern albumin low at 2.9 consistent hypoalbuminemia chest x-ray shows fluid overload type pattern Plan Discussed case with hospitalist concrete precast moulder he agreed to come evaluate the patient emergency department for admission Patient was in agreement with the plan all questions were answered This note was dictated using [email or web address] voice recognition software please call with any questions.
[2016-09-29] MEDS ORDERED: Furosemide 40 MG/4 ML VIAL IVPUSH ONE (16:20)
--- NOTE | 2016-09-29 19:08 | PCM.HP ---
H&P History of Present Illness - General Date of Service: 09/29/16 Admit Problem/Dx: Admission Diagnosis/Problem Admission Diagnosis/Problem CHF, Congestive heart failure Source of Information: Patient, Old records, Provider, RN notes reviewed History Limitations: Reports: Altered mental status (Dementia) - History of Present Illness Initial Comments - Free Text/Narative: Ms. Zhou is an 89-year-old woman, admitted through the emergency room with increased shortness of breath and weakness secondary to congestive heart failure and severe aortic stenosis. She was hospitalized at this facility last week with similar symptoms. She was treated with IV diuretics and felt significantly improved by the time of discharge. Echocardiogram obtained last week shows decreased left ventricular function with an estimated ejection fraction in the range of 30-40%, concentric left ventricular hypertrophy, and evidence of severe aortic stenosis. Formal report from the echocardiogram is still pending at the time of this discharge. She felt well after discharge for a few days but now over the past 2-3 days has noted increased shortness of breath, weakness and fatigue. She's developed some increase in her peripheral edema and other than shortness of breath with exertion has developed PND and orthopnea. Complicating the congestive heart failure and aortic stenosis is stage III chronic kidney disease. Patient does struggle to provide specific details concerning recent symptoms because of her underlying dementia. Chest Pain Score (Numeric/FACES): 3 - Related Data Allergies/Adverse Reactions: Allergies Allergy/AdvReac Type Severity Reaction Status Date / Time No Known Allergies Allergy Verified 09/20/16 15:02 Home Medications: Home Meds Triamcinolone Acetonide [Triamcinolone Acetonide 0.1% Crm] 1 inch TOP TID [History] atorvaSTATin [Lipitor] 20 mg PO BEDTIME 09/20/16 [History] Furosemide [Lasix] 40 mg PO DAILY #30 tablet 09/24/16 [Rx] Metoprolol Succinate [Toprol XL] 25 mg PO DAILY #30 tab.er 09/24/16 [Rx] Omeprazole 40 mg PO DAILY #30 cap.sr 09/24/16 [Rx] glyBURIDE [Glyburide] 10 mg PO BIDAC #120 tablet 09/24/16 [Rx] Past Medical History HEENT History: Reports: Impaired vision Cardiovascular History: Reports: Heart Failure, High cholesterol, Hypertension Gastrointestinal History: Reports: GERD Genitourinary History: Reports: UTI, recurrent OPHTHALMIC AIDE History: Reports: Musculoskeletal History: Reports: Osteoarthritis 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 Psychiatric History: Reports: Dementia, Depression Endocrine/Metabolic History: Reports: Diabetes, type II Dermatologic History: Reports: Other (see below) Other Dermatologic History: rash under arms,chest - Infectious Disease History Infectious Disease History: Reports: Chicken pox, Measles, Mumps - Past Surgical History GI Surgical History: Reports: Cholecystectomy Female Surgical History: Reports: Hysterectomy, Mastectomy Musculoskeletal Surgical History: Reports: Knee replacement, Shoulder surgery Other Oncologic Surgeries/Procedures: L side Social & Family History - Family History Cardiac: Reports: CAD Respiratory: Reports: COPD Oncologic: Reports: Pancreatic - Tobacco Use Smoking Status *Q: Never Smoker Years of Tobacco use: 0 Second Hand Smoke Exposure: No - Caffeine Use Caffeine Use: Reports: Tea - Alcohol Use Days Per Week of Alcohol Use: 0 - Recreational Drug Use Recreational Drug Use: No H&P Review of Systems - Review of Systems: Review Of Systems: Unable To Obtain General: Reports: ROS unobtainable (Dementia) Exam - Exam Exam: See Below - Vital Signs Vital Signs: Last Vital Signs Temp 98.2 F 09/29/16 15:31 Pulse 100 09/29/16 18:13 Resp 22 H 09/29/16 15:31 BP 131/86 09/29/16 18:13 Pulse Ox 98 09/29/16 18:13 Weight: 159 lb - Exam Quality Assessment: supplemental oxygen, urinary catheter, DVT prophylaxis General: alert, cooperative, mild distress HEENT: Conjunctiva clear, EOMI, Hearing intact, Mucosa moist & pink, Nares patent, Normal nasal septum, Posterior pharynx clear, Pupils equal, Pupils reactive, TMs clear Neck: supple, trachea midline, +2 carotid pulse wo bruit Lungs: Normal respiratory effort, Rales. No: Crackles, Rhonchi, Rub, Stridor, Wheezing Cardiovascular: regular rate, regular rhythm, normal S1, normal S2, systolic murmur. No: irregular rhythm, bradycardia, tachycardia, diastolic murmur Abdomen: normal bowel sounds, soft Back Exam: normal inspection, full range of motion, NT Extremities: normal inspection, edema. No: clubbing, cyanosis Skin: warm, dry, intact Neurological: cranial nerves intact, strength equal bilateral, normal speech, normal tone, sensation intact Neuro Extensive - Mental Status: alert, normal mood/affect, disorientation to time, memory loss-remote events, memory loss-recent events. No: normal cognition, memory intact - Patient Data Lab Results last 24 hrs: Laboratory Results - last 24 hr 09/29/16 09/29/16 Range/Units 15:52 15:52 WBC 6.1 (4.5-11.0) K/uL RBC 4.45 (3.30-5.50) M/uL Hgb 14.4 (12.0-15.0) g/dL Hct 42.1 (36.0-48.0) % MCV 95 (80-98) fL MCH 32 H (27-31) pg MCHC 34 (32-36) % Plt Count 275 (150-400) K/uL Neut % (Auto) 61 (36-66) % Lymph % (Auto) 27 (24-44) % [place] % (Auto) 10 H (2-6) % Eos % (Auto) 2 (2-4) % Baso % (Auto) 1 (0-1) % Sodium 138 L (140-148) mmol/L Potassium 3.6 (3.6-5.2) mmol/L Chloride 102 (100-108) mmol/L Carbon Dioxide 27 (21-32) mmol/L Anion Gap 12.6 (5.0-14.0) mmol/L BUN 21 H (7-18) mg/dL Creatinine 1.2 H (0.6-1.0) mg/dL Est Cr Clr Drug Dosing 24.01 mL/min Estimated GFR (MDRD) 42 L (>60) Glucose 287 H (74-106) mg/dL Calcium 8.4 L (8.5-10.1) mg/dL Total Bilirubin 0.3 D (0.2-1.0) mg/dL AST 15 (15-37) U/L ALT 26 (12-78) U/L Alkaline Phosphatase 58 (46-116) U/L Troponin I 0.071 H* (0.000-0.056) ng/mL Lfo-D-Lhdznzphvaj Pept 7598 H (5-450) pg/mL Total Protein 6.8 (6.4-8.2) g/dL Albumin 2.9 L (3.4-5.0) g/dL Globulin 3.9 H (2.3-3.5) g/dL Albumin/Globulin Ratio 0.7 L (1.2-2.2) Result Diagrams: 09/29/16 15:52 09/29/16 15:52 *Q Meaningful Use (ADM) - VTE *Q VTE Criteria *Q: - VTE Risk Assess *Q Each Risk Factor Represents 1 Point: Swollen Legs, Current, Congestive Heart Failure, Less than 1 Month Total Score 1 Point Risk Factors: 2 Each Risk Factor Represents 2 Points: None Total Score 2 Point Risk Factors: 0 Each Risk Factor Represents 3 Points: Age 75 Years or Greater Total Score 3 Point Risk Factors: 3 Each Risk Factor Represents 5 Points: None Total Score 5 Point Risk Factors: 0 Venous Thromboembolism Risk Factor Score *Q: 5 - Stroke *Q Stroke Criteria *Q: - AMI *Q AMI Criteria *Q: Problem List Initiated/Reviewed/Updated: Yes Orders Last 24hrs: Active Orders 24 hr Category Date Time Status Patient Status Manage Transfer [TRANSFER] Routine ADT 09/29/16 18:53 Ordered Cardiac Monitoring [RC] .As Directed Care 09/29/16 15:52 Active Cardiac Monitoring [RC] .As Directed Care 09/29/16 18:53 Ordered EKG Documentation Completion [RC] ASDIRECTED Care 09/29/16 15:54 Active Manzano Catheter Insertion [Insert Urinary Catheter] [OM. Care 09/29/16 16:30 Ordered PC] Q24H Peripheral IV Care [RC] . DIRECTED Care 09/29/16 15:54 Active Urinary Catheter Assessment [RC] ASDIRECTED Care 09/29/16 16:21 Active Chest 1V Frontal [CR] Stat Exams 09/29/16 15:54 Taken Sodium Chloride 0.9% [Saline Flush] Med 09/29/16 15:52 Active 10 ml FLUSH ASDIRECTED PRN Peripheral IV Insertion Adult [OM.PC] Stat Oth 09/29/16 15:52 Ordered Saline Lock Insert [OM.PC] Stat Oth 09/29/16 15:52 Ordered Resuscitation Status Routine Resus Stat 09/29/16 18:55 Ordered EKG 12 Lead [EK] Stat Ther 09/29/16 15:54 Ordered Medication Orders Sodium Chloride (Saline Flush) 10 ml FLUSH ASDIRECTED PRN PRN Reason: Keep Vein Open Last Admin: 09/29/16 15:55 Dose: 10 ml Assessment/Plan Comment:: ASSESSMENT AND PLAN CONGESTIVE HEART FAILURE WITH SEVERE AORTIC STENOSIS-recurrence of symptoms that she experienced last week requiring hospitalization. Initially after discharge felt well but within a few days redeveloped symptoms of shortness of breath with peripheral edema. Echocardiogram obtained on the , preliminary report shows decreased left ventricular function and evidence of severe aortic stenosis. -IV Lasix given in the emergency department, plan to repeat in a.m. -Obtain formal echocardiogram report -Continue current beta daly therapy -Hold on MARJAN inhibitor therapy because of chronic kidney disease, reconsider if renal function remains stable -Further discussion with patient and family concerning severe aortic stenosis TYPE 2 DIABETES MELLITUS -4 times a day glucometers -Hold glipizide -Low-dose sliding scale NovoLog CHRONIC KIDNEY DISEASE STAGE III -Closely monitor renal function and urine output during hospital stay ELEVATED TROPONIN-likely secondary to underlying chronic kidney disease as well as component of demand ischemia in the setting of congestive heart failure and severe aortic stenosis. DEMENTIA MAINTENANCE ISSUES -DVT prophylaxis; Lovenox 40 mg subcutaneous daily -GI prophylaxis; continue outpatient PPI therapy -Manzano catheter; placed in the emergency department -Nutrition; consistent carb 2 g sodium diet -Nicotine dependence; not required CODE STATUS-DNR/DNI ADMISSION STATUS-patient will be admitted to inpatient status, expect at least a 2 night hospital stay for evaluation and management of problems as outlined above. At the time of this admission I do not reasonably expected evaluation and management of this problem will require more than a 96 hour hospital stay. DISPOSITION-anticipate discharge to home after the hospital stay. PRIMARY CARE PROVIDER-Dr. Luna
[2016-09-29] MEDS ORDERED: oxyCODONE 5 MG Tab PO PRN (19:21)
[2016-09-29] MEDS ORDERED: Enoxaparin 40 MG/0.4 ML Syringe SUBCUT SCH (19:21)
[2016-09-29] MEDS ORDERED: Glucose Gel 15 GM in 37.5 GM Tube PO PRN (19:21)
[2016-09-29] MEDS ORDERED: Magnesium Hydroxide 400 MG/5 ML Susp 30 ML Cup PO PRN (19:21)
[2016-09-29] MEDS ORDERED: 50% Dextrose in Water 50 ML Syringe IV PRN (19:21)
[2016-09-29] MEDS ORDERED: Ondansetron 4 MG/2 ML SDV IV PRN (19:21)
[2016-09-29] MEDS ORDERED: Polyethylene Glycol 3350 Powder 17 GM Packet PO PRN (19:21)
[2016-09-29] MEDS ORDERED: Docusate Sodium 100 MG Cap PO PRN (19:21)
[2016-09-29] MEDS ORDERED: Acetaminophen 325 MG Tab PO PRN (19:21)
[2016-09-29] MEDS: atorvaSTATin 20 MG Tab PO SCH (20:17)
[2016-09-29] MEDS: Insulin Aspart 100 Units/ML 3 ML Pen SUBCUT SCH (21:31)
[2016-09-30] MEDS ORDERED: Furosemide 40 MG/4 ML VIAL IVPUSH ONE (08:30)
--- NOTE | 2016-09-30 08:45 | CR ---
Chest 1V Frontal HISTORY: Chest Pain COMPARISON: 09/20/2016 FINDINGS: There is improved inspiration on today's exam. No acute infiltrate is identified. Cardiomediastinal silhouette is within normal limits. No vascular redistribution or is seen. Small bilateral pleural e ffusions are redemonstrated and appear similar to the prior exam. Bony structures and soft tissues a re stable. Surgical clips overlie the left axilla. IMPRESSION: Small bilateral pleural effusions similar to the prior exam. No other pulmonary congestive changes a re seen. There is improved inspiration on today's study..
[2016-09-30] MEDS: Pantoprazole 40 MG Tab.CR PO SCH (08:50)
[2016-09-30] MEDS ORDERED: Non-Formulary Medication 1 Each (Omeprazole [Omeprazole] 40 MG) PO SCH (09:00)
[2016-09-30] MEDS: Potassium Chloride 20 MEQ Tab.ER PO SCH ×2 (09:30→16:52)
[2016-09-30] MEDS: Magnesium Oxide 400 MG Tab PO SCH ×2 (09:30→20:29)
[2016-09-30] MEDS: Metoprolol Succinate 25 MG Tab.ER PO SCH (09:33)
[2016-09-30] MEDS: Insulin Aspart 100 Units/ML 3 ML Pen SUBCUT SCH ×3 (09:41→16:52)
--- NOTE | 2016-09-30 20:15 | PCM.PN ---
- General Info Date of Service: 09/30/16 Functional Status: Reports: tolerating diet - Review of Systems General: Reports: Weakness. Denies: Fever, Chills Pulmonary: Reports: shortness of breath. Denies: pleuritic chest pain, cough, sputum, hemoptysis, wheezing Cardiovascular: Reports: Dyspnea on Exertion, Edema. Denies: Chest Pain, Palpitations, Orthopnea, PND Gastrointestinal: Reports: No symptoms Systems Review Comment:: Patient has felt improved since admission, there's been improvement in her shortness of breath, peripheral edema, orthopnea, and PND. Formal echo report was obtained today and confirms decreased left ventricular function as well as severe aortic stenosis. I reviewed these results with both the patient and her son who was present today. Patient and family do not want to consider further aggressive evaluation or intervention. She is not yet willing to consider hospice care, but does recognize that she will require fdc placement. She understands that she is likely to develop recurrent symptoms because of her underlying heart problems. - Patient Data Vitals - most recent: Last Vital Signs Temp 97.5 F 09/30/16 19:00 Pulse 62 09/30/16 17:13 Resp 16 09/30/16 19:00 BP 110/74 09/30/16 19:00 Pulse Ox 96 09/30/16 19:00 Weight - most recent: 157 lb 3.2 oz I&O - last 24 hours: Intake & Output 09/30/16 09/30/16 09/30/16 06:59 14:59 22:59 Intake Total 360 Output Total 300 450 Balance -300 -90 Lab Results last 24 hrs: Laboratory Results - last 24 hr 09/30/16 Range/Units 05:11 Sodium 141 (140-148) mmol/L Potassium 3.4 L (3.6-5.2) mmol/L Chloride 104 (100-108) mmol/L Carbon Dioxide 31 (21-32) mmol/L Anion Gap 9.4 (5.0-14.0) mmol/L BUN 21 H (7-18) mg/dL Creatinine 1.2 H (0.6-1.0) mg/dL Est Cr Clr Drug Dosing 24.01 mL/min Estimated GFR (MDRD) 42 L (>60) Glucose 247 H (74-106) mg/dL Calcium 8.6 (8.5-10.1) mg/dL Magnesium 1.6 L (1.8-2.4) mg/dL Troponin I 0.077 H* (0.000-0.056) ng/mL Med Orders - Current: Current Medications Acetaminophen (Tylenol) 650 mg PO Q4H PRN PRN Reason: Pain (Mild 1-3)/fever Atorvastatin Calcium (Lipitor) 20 mg PO BEDTIME [facility] Last Admin: 09/29/16 20:17 Dose: 20 mg Dextrose (Glutose 15) 15 gm PO ONETIME PRN PRN Reason: Hypoglycemia Dextrose/Water (Dextrose 50% In Water) 50 ml IV ONETIME PRN PRN Reason: Hypoglycemia Docusate Sodium (Colace) 100 mg PO BID PRN PRN Reason: Constipation Enoxaparin Sodium (Lovenox) 30 mg SUBCUT BEDTIME [facility] Insulin Aspart (Novolog) 0 unit SUBCUT ASDIRECTED [facility] PRN Reason: Protocol Last Admin: 09/30/16 16:52 Dose: 3 units Magnesium Hydroxide (Milk Of Magnesia) 30 ml PO Q12H PRN PRN Reason: Constipation Magnesium Oxide (Magnesium Oxide) 400 mg PO BID [facility] Last Admin: 09/30/16 09:30 Dose: 400 mg Metoprolol Succinate (Toprol Xl) 25 mg PO DAILY [facility] Last Admin: 09/30/16 09:33 Dose: 25 mg Ondansetron HCl (Zofran) 4 mg IV Q4H PRN PRN Reason: Nausea/Vomiting Oxycodone HCl (Oxycodone) 5 mg PO Q4H PRN PRN Reason: Pain (moderate 4-6) Pantoprazole Sodium (Protonix) 40 mg PO ACBREAKFAST [facility] Last Admin: 09/30/16 08:50 Dose: 40 mg Polyethylene Glycol (Miralax) 17 gm PO DAILY PRN PRN Reason: Constipation Potassium Chloride (Klor-Con M20) 40 meq PO BIDMEALS [facility] Last Admin: 09/30/16 16:52 Dose: 40 meq Sodium Chloride (Saline Flush) 10 ml FLUSH ASDIRECTED PRN PRN Reason: Keep Vein Open Discontinued Medications Enoxaparin Sodium (Lovenox) 40 mg SUBCUT DAILY [facility] Last Admin: 09/29/16 20:17 Dose: 40 mg Furosemide (Lasix) 40 mg IVPUSH ONETIME ONE Stop: 09/29/16 16:21 Last Admin: 09/29/16 16:31 Dose: 40 mg Furosemide (Lasix) 40 mg IVPUSH NOW ONE Stop: 09/30/16 08:31 Last Admin: 09/30/16 09:36 Dose: 40 mg Sodium Chloride (Saline Flush) 10 ml FLUSH ASDIRECTED PRN PRN Reason: Keep Vein Open Last Admin: 09/29/16 15:55 Dose: 10 ml - Exam General: alert, cooperative, no acute distress Lungs: Clear to auscultation, Normal respiratory effort Cardiovascular: Regular Rate, Regular Rhythm, Murmurs. No: Irregular Rhythm, Bradycardia, Tachycardia Abdomen: bowel sounds present, soft, no tenderness, no distension Extremities: edema Skin: warm, dry, intact - Problem List Review Problem List Initiated/Reviewed/Updated: Yes - My Orders Last 24 Hours: My Active Orders 09/30/16 07:30 Pantoprazole [ProTONIX] 40 mg PO ACBREAKFAST 09/30/16 08:30 Potassium Chloride [Klor-Con M20] 40 meq PO BIDMEALS 09/30/16 09:00 Magnesium Oxide 400 mg PO BID 09/30/16 17:23 EKG 12 Lead [EK] Routine 09/30/16 21:00 Enoxaparin [Lovenox] 30 mg SUBCUT BEDTIME 10/01/16 05:00 BASIC METABOLIC PANEL,BMP [CHEM] Timed MAGNESIUM [CHEM] Timed TROPONIN I [CHEM] Timed - Plan Plan:: ASSESSMENT AND PLAN CONGESTIVE HEART FAILURE WITH SEVERE AORTIC STENOSIS-recurrence of symptoms that she experienced last week requiring hospitalization. She's felt better since admission with less shortness of breath and edema -IV Lasix repeat in a.m. -Continue current beta daly therapy -Hold on MARJAN inhibitor therapy because of chronic kidney disease, reconsider if renal function remains stable -Patient would like to continue medical management of her cardiac problem, does not want to consider further aggressive evaluation or intervention TYPE 2 DIABETES MELLITUS -4 times a day glucometers -Hold glipizide -Low-dose sliding scale NovoLog CHRONIC KIDNEY DISEASE STAGE III-kidney function has been stable since admission -Closely monitor renal function and urine output during hospital stay ELEVATED TROPONIN-likely secondary to underlying chronic kidney disease as well as component of demand ischemia in the setting of congestive heart failure and severe aortic stenosis. -Repeat troponin in a.m. DEMENTIA MAINTENANCE ISSUES -DVT prophylaxis; Lovenox 40 mg subcutaneous daily -GI prophylaxis; continue outpatient PPI therapy -Manzano catheter; placed in the emergency department -Nutrition; consistent carb 2 g sodium diet -Nicotine dependence; not required CODE STATUS-DNR/DNI ADMISSION STATUS-patient will be admitted to inpatient status, expect at least a 2 night hospital stay for evaluation and management of problems as outlined above. At the time of this admission I do not reasonably expected evaluation and management of this problem will require more than a 96 hour hospital stay. DISPOSITION-anticipate discharge to home after the hospital stay. PRIMARY CARE PROVIDER-Dr. Luna
[2016-09-30] MEDS: atorvaSTATin 20 MG Tab PO SCH (20:29)
[2016-09-30] MEDS ORDERED: Enoxaparin 30 MG/0.3 ML Syringe SUBCUT SCH (21:00)
[2016-10-01] MEDS: Insulin Aspart 100 Units/ML 3 ML Pen SUBCUT SCH ×2 (00:13→08:58)
[2016-10-01] MEDS ORDERED: Furosemide 40 MG/4 ML VIAL IVPUSH ONE (08:00)
[2016-10-01] MEDS: Pantoprazole 40 MG Tab.CR PO SCH (08:00)
[2016-10-01] MEDS: Potassium Chloride 20 MEQ Tab.ER PO SCH (08:17)
[2016-10-01] MEDS: Metoprolol Succinate 25 MG Tab.ER PO SCH (08:55)
[2016-10-01] MEDS: Magnesium Oxide 400 MG Tab PO SCH (08:56)
[2016-10-01] MEDS ORDERED: Insulin Aspart 100 Units/ML 3 ML Pen SUBCUT STA (11:48)
--- NOTE | 2016-10-01 13:37 | PCM.DCSUM1 ---
Discharge Summary - Hospital Course Brief History: Ms. Zhou is an 89-year-old woman was admitted through the emergency department with shortness of breath secondary to pulmonary edema from underlying congestive heart failure and severe aortic stenosis. - Discharge Data Discharge Date: 10/01/16 Discharge Disposition: DC/Tfer to SNF 03 Condition: Poor - Discharge Diagnosis/Problem(s) (1) Severe aortic stenosis SNOMED Code(s): 12619829 ICD Code: I35.0 - NONRHEUMATIC AORTIC (VALVE) STENOSIS Status: Acute Priority: High Current Visit: Yes (2) Congestive heart failure SNOMED Code(s): 51155187 ICD Code: I50.9 - HEART FAILURE, UNSPECIFIED Status: Acute Current Visit : Yes Qualifiers: Congestive heart failure type: systolic Congestive heart failure chronicity : acute on chronic Qualified Code(s): I50.23 - Acute on chronic systolic ( congestive) heart failure (3) Diabetes mellitus with hyperglycemia SNOMED Code(s): 91755301, 60498138, 886611620 ICD Code: E11.65 - TYPE 2 DIABETES MELLITUS WITH HYPERGLYCEMIA Status: Acute Current Visit: No Qualifiers: Diabetes mellitus type: type 2 Diabetes mellitus senior living insulin use: without manager terminal use Qualified Code(s): E11.65 - Type 2 diabetes mellitus with hyperglycemia (4) Dementia SNOMED Code(s): 44020784 ICD Code: F03.90 - UNSPECIFIED DEMENTIA WITHOUT BEHAVIORAL DISTURBANCE Status: Chronic Current Visit: No Qualifiers: Dementia type: Alzheimer's disease Alzheimer's disease onset: late-onset Dementia behavioral disturbance: without behavioral disturbance Qualified Code (s): G30.1 - Alzheimer's disease with late onset; F02.80 - Dementia in other diseases classified elsewhere without behavioral disturbance (5) Stage III chronic kidney disease SNOMED Code(s): 293182968 ICD Code: N18.3 - CHRONIC KIDNEY DISEASE, STAGE 3 (MODERATE) Status: Chronic Current Visit: No - Patient Summary/Data Hospital Course: Ms. Zhou is 89 years of age and has a known history of congestive heart failure as well as severe aortic stenosis. She was hospitalized last week because of shortness of breath and weakness. Echocardiogram was obtained showing decreased left ventricular function in the range of 30-40% as well as critical aortic stenosis. She was discharged home on diuretic therapy but unfortunately developed recurrent symptoms of shortness of breath with any short period of time. On evaluation emergency room Department was noted again to have some pulmonary edema as well as peripheral edema. She was admitted to the hospital and given IV Lasix in the emergency department as well as throughout her hospital stay. By the time of discharge she was feeling better with less shortness of breath and peripheral edema. Patient has underlying dementia and difficulty in retaining information as well as providing information concerning symptoms. Discussion was held with family concerning her severe aortic stenosis and associated congestive heart failure with decreased left ventricular function. Family did not want to consider pursuing more aggressive evaluation in the an intervention and has requested that we proceed with comfort cares only. [facility] with increased daily dose of diuretic therapy. We will use morphine and lorazepam as needed for comfort, as her conditions worsens we will not pursue further hospitalization or aggressive interventions. Blood sugars remained elevated throughout hospitalization, and she is going to be discharged to [facility] we will initiate insulin therapy. Levemir 20 units subcutaneous at bedtime and NovoLog 4 units subcutaneously with each meal. Activity will be as tolerated and she will remain on a diabetic and low-sodium diet. Followup will be [facility] the [facility] as needed with her primary care physician Dr. Luna. - Patient Instructions Diet: Low Sodium, Diabetic Diet Activity: As Tolerated Other/Special Instructions: Comfort cares only, no further aggressive evaluation or interventions including hospitalization. - Discharge Plan Prescriptions/Med Rec: Furosemide [Lasix] 40 mg PO BID #60 tablet Insulin Aspart [NovoLOG] 4 unit SUBCUT TID #1 pen Insulin Detemir [Levemir] 20 unit SQ BEDTIME #1 ml LORazepam [LORazepam Intensol] 0.5 mg PO Q2H PRN #30 ml PRN Reason: Anxiety Morphine Sulfate 5 mg BUCCAL Q1H PRN #30 ml PRN Reason: Dyspnea Potassium Chloride [Klor-Con M20] 40 meq PO DAILY #60 tab.er Home Medications: Home Meds Triamcinolone Acetonide [Triamcinolone Acetonide 0.1% Crm] 1 inch TOP TID [History] atorvaSTATin [Lipitor] 20 mg PO BEDTIME 09/20/16 [History] Metoprolol Succinate [Toprol XL] 25 mg PO DAILY #30 tab.er 09/24/16 [Rx] Omeprazole 40 mg PO DAILY #30 cap.sr 09/24/16 [Rx] Furosemide [Lasix] 40 mg PO BID #60 tablet 10/01/16 [Rx] Insulin Aspart [NovoLOG] 4 unit SUBCUT TID #1 pen 10/01/16 [Rx] Insulin Detemir [Levemir] 20 unit SQ BEDTIME #1 ml 10/01/16 [Rx] LORazepam [LORazepam Intensol] 0.5 mg PO Q2H PRN #30 ml 10/01/16 [Rx] Morphine Sulfate 5 mg BUCCAL Q1H PRN #30 ml 10/01/16 [Rx] Potassium Chloride [Klor-Con M20] 40 meq PO DAILY #60 tab.er 10/01/16 [Rx] Referrals: Rd Luna MD [Primary Care Provider] - - Patient Data Vitals - Most Recent: Last Vital Signs Temp 96.6 F 10/01/16 07:45 Pulse 93 10/01/16 08:55 Resp 18 10/01/16 07:45 BP 124/77 10/01/16 09:40 Pulse Ox 92 L 10/01/16 07:45 Weight - Most Recent: 156 lb 13.954 oz I&O - Last 24 hours: Intake & Output 09/30/16 10/01/16 10/01/16 22:59 06:59 14:59 Intake Total 360 Output Total 200 Balance -200 360 Lab Results - Last 24 hrs: Laboratory Results - last 24 hr 10/01/16 Range/Units 05:34 Sodium 138 L (140-148) mmol/L Potassium 4.3 (3.6-5.2) mmol/L Chloride 100 (100-108) mmol/L Carbon Dioxide 30 (21-32) mmol/L Anion Gap 12.3 (5.0-14.0) mmol/L BUN 28 H (7-18) mg/dL Creatinine 1.2 H (0.6-1.0) mg/dL Est Cr Clr Drug Dosing 24.01 mL/min Estimated GFR (MDRD) 42 L (>60) Glucose 239 H (74-106) mg/dL Calcium 8.9 (8.5-10.1) mg/dL Magnesium 1.8 (1.8-2.4) mg/dL Troponin I 0.070 H* (0.000-0.056) ng/mL Med Orders - Current: Current Medications Acetaminophen (Tylenol) 650 mg PO Q4H PRN PRN Reason: Pain (Mild 1-3)/fever Atorvastatin Calcium (Lipitor) 20 mg PO BEDTIME [facility] Last Admin: 09/30/16 20:29 Dose: 20 mg Dextrose (Glutose 15) 15 gm PO ONETIME PRN PRN Reason: Hypoglycemia Dextrose/Water (Dextrose 50% In Water) 50 ml IV ONETIME PRN PRN Reason: Hypoglycemia Docusate Sodium (Colace) 100 mg PO BID PRN PRN Reason: Constipation Enoxaparin Sodium (Lovenox) 30 mg SUBCUT BEDTIME [facility] Last Admin: 09/30/16 20:29 Dose: 30 mg Insulin Aspart (Novolog) 0 unit SUBCUT ASDIRECTED [facility] PRN Reason: Protocol Last Admin: 10/01/16 08:58 Dose: 3 units Magnesium Hydroxide (Milk Of Magnesia) 30 ml PO Q12H PRN PRN Reason: Constipation Magnesium Oxide (Magnesium Oxide) 400 mg PO BID [facility] Last Admin: 10/01/16 08:56 Dose: 400 mg Metoprolol Succinate (Toprol Xl) 25 mg PO DAILY [facility] Last Admin: 10/01/16 08:55 Dose: 25 mg Ondansetron HCl (Zofran) 4 mg IV Q4H PRN PRN Reason: Nausea/Vomiting Oxycodone HCl (Oxycodone) 5 mg PO Q4H PRN PRN Reason: Pain (moderate 4-6) Pantoprazole Sodium (Protonix) 40 mg PO ACBREAKFAST [facility] Last Admin: 10/01/16 08:00 Dose: 40 mg Polyethylene Glycol (Miralax) 17 gm PO DAILY PRN PRN Reason: Constipation Potassium Chloride (Klor-Con M20) 40 meq PO BIDMEALS [facility] Last Admin: 10/01/16 08:17 Dose: 40 meq Sodium Chloride (Saline Flush) 10 ml FLUSH ASDIRECTED PRN PRN Reason: Keep Vein Open Discontinued Medications Enoxaparin Sodium (Lovenox) 40 mg SUBCUT DAILY [facility] Last Admin: 09/29/16 20:17 Dose: 40 mg Furosemide (Lasix) 40 mg IVPUSH ONETIME ONE Stop: 09/29/16 16:21 Last Admin: 09/29/16 16:31 Dose: 40 mg Furosemide (Lasix) 40 mg IVPUSH NOW ONE Stop: 09/30/16 08:31 Last Admin: 09/30/16 09:36 Dose: 40 mg Furosemide (Lasix) 40 mg IVPUSH NOW ONE Stop: 10/01/16 08:01 Last Admin: 10/01/16 09:40 Dose: 40 mg Insulin Aspart (Novolog) 6 unit SUBCUT NOW STA Stop: 10/01/16 11:49 Sodium Chloride (Saline Flush) 10 ml FLUSH ASDIRECTED PRN PRN Reason: Keep Vein Open Last Admin: 09/29/16 15:55 Dose: 10 ml *Q Meaningful Use (DIS) - VTE *Q VTE Criteria *Q: - Stroke *Q Stroke Criteria *Q: - AMI *Q AMI Criteria *Q:
[2016-10-01 13:53] VITALS: BP 133/91
== END 2016-10-01 15:10 | DRG 291 ==
LOC: JP.ED 15:12 → JP.MS 18:53 → UNDOADMIN 19:28 → UNDODISIN 10-01 15:10
PROVIDERS: ADMIT Hospitalist; ATTEND Hospitalist
DX: I13.0 Hypertensive heart and chronic kidney disease with heart failure and stage 1 through stage 4 chronic kidney disease, or unspecified chronic kidney disease (principal); I50.23 Acute on chronic systolic (congestive) heart failure; I35.0 Nonrheumatic aortic (valve) stenosis; E11.22 Type 2 diabetes mellitus with diabetic chronic kidney disease; N18.3 Chronic kidney disease, stage 3 (moderate); E11.65 Type 2 diabetes mellitus with hyperglycemia; Z79.4 Long term (current) use of insulin; Z66 Do not resuscitate; G30.1 Alzheimer's disease with late onset; F02.80 Dementia in other diseases classified elsewhere, unspecified severity, without behavioral disturbance, psychotic disturbance, mood disturbance, and anxiety; Z51.5 Encounter for palliative care; E78.00 Pure hypercholesterolemia, unspecified; M19.90 Unspecified osteoarthritis, unspecified site; K21.9 Gastro-esophageal reflux disease without esophagitis; Z87.440 Personal history of urinary (tract) infections; H54.7 Unspecified visual loss; Z96.659 Presence of unspecified artificial knee joint
CPT/HCPCS: 36415; 51702; 71010 ×2; 80053; 82962; 83880; 84484; 85025; 93005; 96374; 99285; A9270; J1940; J7050; 80048; 83735; 93010; 97116-GP; 97162-GP; 97530-GP; J1650